=== PATIENT | female | born 1995 | race Asian ===

== ENCOUNTER 2023-07-20 07:07 | Outpatient (CLI) | payer OTHER, SELFPAY ==
--- NOTE | 2023-07-20 07:15 | CRLHL7_ITS ---
For Patients: As a result of the Cures Act, medical imaging exams and procedure reports are released immediately into your electronic medical record. You may view this report before your referring provider. If you have questions, please contact your health care provider. INDICATION: First trimester scan, establish dates. COMPARISON: None. TECHNIQUE: Real-time meehan-scale imaging of the pelvis was performed. FINDINGS: Sonographic imaging demonstrates a single living intrauterine gestation. The embryo demonstrates a regular cardiac rate measuring 167 beats per minute. The embryo`s crown-rump length measurement of 2.1 cm corresponds to a gestational age of 8 weeks 5 days with a sonographic due date of 02/24/2024. The yolk sac measures 5.8 millimeters. There are no gross abnormalities noted within the embryo at this early state of development. The gestational sac has a normal appearance. There is a 1.9 x 1.6 x 2.1 cm perigestational hemorrhage. The amount of fluid within the sac appears appropriate for gestational age. The cervix is closed. The myometrium appears normal. The ovaries are of normal size. Corpus luteal cyst right ovary. There are no suspicious fluid collections noted in the cul-de-sac. IMPRESSION: Single living intrauterine with sonographic gestational age 8 weeks 5 days and sonographic due date 02/24/2024. Upper limits of normal yolk sac measuring 5.8 millimeters. Follow-up could be considered in 2 weeks. Dictated by Augustine Rao MD @ 07/20/2023 10:19:17 AM (Electronically Signed)
== END 2023-07-20 07:08 | disposition home or self-care (01) ==
LOC: US 07:12
PROVIDERS: Visit Provider Advanced Practice Midwife
DX: Z34.91 Encounter for supervision of normal pregnancy, unspecified, first trimester (principal); Z3A.08 8 weeks gestation of pregnancy
CPT/HCPCS: 76817; 86592; 86593; 86703; 86704; 86706; 86762; 86780; 86787; 86803; 86850; 86900; 86901; 87086; 87340; 87491; 87591

== ENCOUNTER 2023-07-20 09:15 | Outpatient (CLI) | payer OTHER, SELFPAY | END 2023-07-20 09:16 | disposition home or self-care (01) | LOC: NFLDREF 07-21 06:41 | PROVIDERS: Visit Provider Advanced Practice Midwife | DX: Z34.91 Encounter for supervision of normal pregnancy, unspecified, first trimester (principal); Z3A.08 8 weeks gestation of pregnancy | CPT/HCPCS: 86592; 86593; 86703; 86704; 86706; 86762; 86780; 86787; 86803; 86850; 86900; 86901; 87086; 87340; 87491; 87591 ==

== ENCOUNTER 2023-07-25 14:54 | Emergency (ER) | payer OTHER, SELFPAY ==
[2023-07-25 15:13] VITALS: BP 117/80; PULSE 72; RESP 16; TEMP 36.6; O2SAT 100; BMI 31.5
[2023-07-25] MEDS: LACTATED RINGERS 1000 ML 1,000 ML IV (19:19)
[2023-07-25] MEDS: ONDANSETRON 2 MG/ML inj 4 MG IVP (19:20)
[2023-07-25 19:23] LABS: Appearance Urine Clear (Clear); Bilirubin Urine Negative (Negative); Blood Urine Negative (Negative); Color Urine Yellow (Yellow); Glucose Urine Negative (Negative); Ketones Urine 3+ (Negative); Leukocyte Esterase Urine Negative (Negative); Nitrite Urine Negative (Negative); Protein Urine Negative (Negative); Specific Gravity Urine >= 1.030 (1.000-1.030); Urobilinogen Urine 0.2 (0.2-1.0)
[2023-07-25 19:30] VITALS: O2SAT 99
[2023-07-25 19:41] LABS: Basophils Percent Auto 0.2 % (0.0-3.0); Eosinophils Percent Auto 0.2 % (0.0-7.0); Hematocrit 42.2 % (33.0-51.0); Hemoglobin* 14.7 gm/dL (12.0-16.0); Immature Granulocytes Pct Auto 0.1 %; Lymphocytes Percent Auto 19.2 % (20-44); Mean Corpuscular HGB Conc 35 gm/dL (32-36); Mean Corpuscular Hemoglobin 30 pg (26-34); Mean Corpuscular Volume 86 fL (80-100); Monocytes Percent Auto 3.8 % (0.0-11.0); Neutrophils Percent Auto 76.5 % (42.0-72.0); Platelet Count* 252 K/uL (140-440); RDW Coefficient of Variation % 11.6 % (11.5-15.5); Red Blood Count 4.93 m/uL (4.00-5.20)
[2023-07-25 19:42] LABS: Slide Review Reflex No
[2023-07-25 19:58] LABS: Chloride* 104 mmol/L (96-114); Potassium* 3.4 mmol/L (3.6-5.1); Sodium* 135 mmol/L (135-149)
[2023-07-25 20:01] LABS: Anion Gap 9 mEq/L (7-15); Blood Urea Nitrogen* 8 mg/dL (5-24); Carbon Dioxide* 22 mmol/L (20-32); Creatinine* 0.5 mg/dL (0.5-1.5); Estimated Glomerular Filt Rate 130 ml/min; Glucose* 84 mg/dL (60-115)
[2023-07-25 20:02] LABS: Calcium* 8.8 mg/dL (8.4-10.6)
[2023-07-25] MEDS: 0.9 % SODIUM CHLORIDE 1000 ml 1,000 ML IV (20:20)
[2023-07-25 20:28] LABS: RBC Urine 0-2 (0-2); WBC Urine 0-2 (0-5)
--- NOTE | 2023-07-25 20:32 | ED.NAVMDI ---
HPI - Nausea/Vomiting/Diarrhea General Date Seen: 07/25/23 Chief complaint: Nausea/Vomiting Stated complaint: 9 weeks , vomiting Time Seen by Provider: 07/25/23 18:52 Source: patient Mode of arrival: ambulatory Limitations: no limitations History of Present Illness HPI Narrative: Patient is a 27-year-old female presenting to the emergency department for nausea and vomiting. She has been having issues with nausea throughout her but states has been worse over the past week. She states she has been barely able to keep anything down. States she is feeling very dehydrated injury trying take her Zofran but would vomit shortly after taking it. She is having some abdominal cramping but states that this worse whenever she vomits. Has not had any vaginal discharge or bleeding. Denies fevers, chills, weakness, numbness, headache. Does states she feels mildly lightheaded and fatigued. Notes her previous she did not have this much nausea. Related Data Home Medications Medication Instructions Recorded Confirmed vitamins no.159-iron tab PO 07/20/23 07/20/23 fumarate 28 mg-folic acid 800 mcg tablet Previous Rx's Medication Instructions Recorded docusate sodium 100 mg capsule 100 mg PO BID #60 caps 07/20/23 ondansetron HCl 4 mg tablet 4 mg PO Q8H PRN nausea and 07/20/23 vomiting #90 tabs Allergies Allergy/AdvReac Type Severity Reaction Status Date / Time No Known Drug Allergies Allergy Verified 07/25/23 15:10 Review of Systems Status of ROS: Reports: 10 or more systems reviewed and unremarkable except as noted in History and below PFSH PFS Medical History Asthma, exercise induced ?J45.990 - Exercise induced bronchospasm (ICD-10) Anorexia ?R63.0 - Anorexia (ICD-10) Surgical History History of tonsillectomy and adenoidectomy ?Z90.89 - Acquired absence of other organs (ICD-10) Social History What is your current living situation?: I presently have a place to live Problems where you live: lead paint or pipes In the past 12 months, utilities in danger of being shut off: no In past 12 months, lack of transportation kept you from medical appts, meetings, work, or getting things needed for daily living: no In the past 12 mos, have been you worried that your food would run out before you had money to buy more?: never true In the past 12 mos, the food you bought just didn't last and you didn't have money to buy more?: never true How often does anyone, including family, friends and others, physically hurt you: never How often does anyone, including family, friends and others, insult or talk down to you: never How often does anyone, including family, friends and others, threaten you with harm: never How often does anyone, including family, friends and others, scream or curse at you: never Little interest or pleasure in doing things: not at all Feeling down, depressed, or hopeless: not at all Exam Narrative: Exam Narrative: Const: Well-nourished, Well-developed, in mild distress Eyes: PERRL, no conjunctival injection, and symmetrical lids HENT: Atraumatic external nose and ears. Moist mucous membranes. Neck: Symmetric, trachea midline, No thyromegaly. CVS: RRR, No murmurs or gallops. Peripheral pulses 2+ and equal in all extremities RESP: Unlabored respiratory effort. Clear to auscultation bilaterally. GI: Nontender/Nondistended, No rebound or guarding. MSK:Extremities w/o deformity, Normal Active ROM Skin: Warm, Dry. No rashes or lesions. Neuro: Normal Muscle tone, No focal neurological deficits. Psych: Awake, Alert, & Oriented x3. Appropriate mood and affect. Const: Vital Signs, click to edit/add: Vital Signs - 24 hr 07/25/23 15:13 Temperature 97.9 F Pulse Rate [Pulse Oximeter] 72 Respiratory Rate 16 Blood Pressure [Ri ght Upper Arm] 117/80 Pulse Oximetry 100 Oxygen Delivery Me thod Room Air Course Vital Signs Vital signs: Initial Vital Signs Temperature 97.9 F 07/25/23 15:13 Temperature Source Temporal Artery Scan 07/25/23 15:13 Pulse Rate 72 07/25/23 15:13 Pulse Rhythm Regular 07/25/23 15:13 Pulse Strength 3+ Normal 07/25/23 15:13 Respiratory Rate 16 07/25/23 15:13 Blood Pressure 117/80 07/25/23 15:13 Blood Pressure Mean 92 07/25/23 15:13 Blood Pressure Position Sitting 07/25/23 15:13 Pulse Oximetry 100 07/25/23 15:13 Oxygen Delivery Method Room Air 07/25/23 15:13 Vital Signs Temperature 97.9 F 07/25/23 15:13 Pulse Rate 72 07/25/23 15:13 Respiratory Rate 16 07/25/23 15:13 Blood Pressure 117/80 07/25/23 15:13 Pulse Oximetry 100 07/25/23 15:13 Oxygen Delivery Method Room Air 07/25/23 15:13 Temperature 97.9 F 07/25/23 15:13 Pulse Rate 72 07/25/23 15:13 Respiratory Rate 16 07/25/23 15:13 Blood Pressure 117/80 07/25/23 15:13 Pulse Oximetry 100 07/25/23 15:13 Oxygen Delivery Method Room Air 07/25/23 15:13 Medications Administered Medications: Discontinued Medications Generic Name Dose Route Start Last Admin Trade Name Freq PRN Reason Stop Dose Admin Lactated Ringer's 1,000 mls @ 1,000 mls/hr 07/25/23 18:57 07/25/23 20:16 Lactated Ringers 1000 Ml IV 07/25/23 19:56 Infused .Q1H ONE Infusion Ondansetron HCl 4 mg 07/25/23 18:57 07/25/23 19:20 Ondansetron 2 Mg/Ml Inj IVP 07/25/23 18:58 4 mg ONCE ONE Administration MDM - Nausea/Vomiting/Diarrhea MDM Narrative Medical decision making narrative: Patient is a 27-year-old female presenting to emergency department for nausea and vomiting. She is currently about 9 weeks . Vital signs are stable. We will do CMP, CBC, urinalysis. Zofran given IV along with a L of lactated Ringer's. Lab work all returned showing no signs of HELLP syndrome. A noted L of fluids was given 2 to urinalysis showing large amount dehydration. The elevated white count is likely secondary to the vomiting and her and no clear signs of infection. No signs of UTI. She is otherwise doing well and be discharged home. She has Zofran at home. Lab Data Labs: Lab Results 07/25/23 07/25/23 07/25/23 Range/Units 19:07 19:15 20:18 WBC 12.60 H (4.50-11.00) K/uL RBC 4.93 (4.00-5.20) m/uL Hgb 14.7 (12.0-16.0) gm/dL Hct 42.2 (33.0-51.0) % MCV 86 (80-100) fL MCH 30 (26-34) pg MCHC 35 (32-36) gm/dL RDW Coeff of Rafael 11.6 (11.5-15.5) % Plt Count 252 (140-440) K/uL Neut % (Auto) 76.5 H (42.0-72.0) % Lymph % (Auto) 19.2 L (20-44) % Coffey % (Auto) 3.8 (0.0-11.0) % Eos % (Auto) 0.2 (0.0-7.0) % Baso % (Auto) 0.2 (0.0-3.0) % Neut # (Auto) 9.60 H (1.7-7.0) K/uL Lymph # (Auto) 2.40 (0.90-2.90) K/uL Coffey # (Auto) 0.50 (0.00-0.90) K/UL Eos # (Auto) 0.00 (0.00-0.50) K/uL Baso # (Auto) 0.00 (0.00-0.30) K/uL Abs Immat Gran (auto) 0.00 (0.00-0.30) K/uL Imm/Tot Granulo (auto) 0.1 % Sodium 135 (135-149) mmol/L Potassium 3.4 L (3.6-5.1) mmol/L Chloride 104 (96-114) mmol/L Carbon Dioxide 22 (20-32) mmol/L Anion Gap 9 (7-15) mEq/L BUN 8 (5-24) mg/dL Creatinine 0.5 (0.5-1.5) mg/dL Estimated Creat Clear 131.30 Estimated GFR 130 ml/min Glucose 84 (60-115) mg/dL Calcium 8.8 (8.4-10.6) mg/dL Total Bilirubin (0.1-1.5) mg/dL Direct Bilirubin (0.0-0.5) mg/dL AST (12-35) U/L ALT (4-35) U/L Alkaline Phosphatase (40-150) U/L Total Protein (6.0-8.3) g/dL Albumin (3.3-5.0) g/dL Urine Color Yellow (Yellow) Urine Appearance Clear (Clear) Urine pH 6.0 (5.0-8.5) Ur Specific [place] >= 1.030 (1.000-1.030) Urine Protein Negative (Negative) Urine Glucose (UA) Negative (Negative) Urine Ketones 3+ A (Negative) Urine Blood Negative (Negative) Urine Nitrite Negative (Negative) Urine Bilirubin Negative (Negative) Urine Urobilinogen 0.2 (0.2-1.0) Ur Leukocyte Esterase Negative (Negative) Urine RBC 0-2 (0-2) Urine WBC 0-2 (0-5) Ur Squamous Epith Cells None (None-Few) Urine Bacteria None (None) Lab Acknowledgement Test Added 07/25/23 Range/Units 20:19 WBC (4.50-11.00) K/uL RBC (4.00-5.20) m/uL Hgb (12.0-16.0) gm/dL Hct (33.0-51.0) % MCV (80-100) fL MCH (26-34) pg MCHC (32-36) gm/dL RDW Coeff of Rafael (11.5-15.5) % Plt Count (140-440) K/uL Neut % (Auto) (42.0-72.0) % Lymph % (Auto) (20-44) % Coffey % (Auto) (0.0-11.0) % Eos % (Auto) (0.0-7.0) % Baso % (Auto) (0.0-3.0) % Neut # (Auto) (1.7-7.0) K/uL Lymph # (Auto) (0.90-2.90) K/uL Coffey # (Auto) (0.00-0.90) K/UL Eos # (Auto) (0.00-0.50) K/uL Baso # (Auto) (0.00-0.30) K/uL Abs Immat Gran (auto) (0.00-0.30) K/uL Imm/Tot Granulo (auto) % Sodium (135-149) mmol/L Potassium (3.6-5.1) mmol/L Chloride (96-114) mmol/L Carbon Dioxide (20-32) mmol/L Anion Gap (7-15) mEq/L BUN (5-24) mg/dL Creatinine (0.5-1.5) mg/dL Estimated Creat Clear Estimated GFR ml/min Glucose (60-115) mg/dL Calcium (8.4-10.6) mg/dL Total Bilirubin 0.4 (0.1-1.5) mg/dL Direct Bilirubin 0.0 (0.0-0.5) mg/dL AST 21 (12-35) U/L ALT 20 (4-35) U/L Alkaline Phosphatase 56 (40-150) U/L Total Protein 7.5 (6.0-8.3) g/dL Albumin 4.4 (3.3-5.0) g/dL Urine Color (Yellow) Urine Appearance (Clear) Urine pH (5.0-8.5) Ur Specific [place] (1.000-1.030) Urine Protein (Negative) Urine Glucose (UA) (Negative) Urine Ketones (Negative) Urine Blood (Negative) Urine Nitrite (Negative) Urine Bilirubin (Negative) Urine Urobilinogen (0.2-1.0) Ur Leukocyte Esterase (Negative) Urine RBC (0-2) Urine WBC (0-5) Ur Squamous Epith Cells (None-Few) Urine Bacteria (None) Lab Acknowledgement Discharge Plan Discharge Clinical Impression: Nausea and vomiting during Patient Disposition: Home, Self-Care Condition: Improved Instructions: Hyperemesis Gravidarum (ED) Additional Instructions: Take the Zofran as soon as you start feeling nauseated to stay ahead of the nausea. If symptoms persist follow-up with your OB Gyne. If symptoms worsen or you develop new symptoms return to the emergency department for re-evaluation Prescriptions: No Action PNV no.388-npht-poqyi acid 28 mg iron- 800 mcg tablet PO ondansetron HCl 4 mg tablet 4 mg PO Q8H PRN (Reason: nausea and vomiting) Qty: 90 2RF docusate sodium 100 mg capsule 100 mg PO BID Qty: 60 3RF Follow Up/Referrals: Provider,Not a Local [Primary Care Provider] - Stand Alone Forms: [employer] Info Instructions
[2023-07-25 20:38] LABS: Albumin* 4.4 g/dL (3.3-5.0)
[2023-07-25 20:41] LABS: Alkaline Phosphatase* 56 U/L (40-150); Aspartate Amino Transferase* 21 U/L (12-35); Bilirubin Total* 0.4 mg/dL (0.1-1.5); Total Protein* 7.5 g/dL (6.0-8.3)
[2023-07-25 20:42] LABS: Alanine Aminotransferase* 20 U/L (4-35)
[2023-07-25 21:15] VITALS: BP 112/78; PULSE 75; RESP 16; TEMP 36.8; O2SAT 100
[2023-07-25 21:40] VITALS: BP 112/78; PULSE 75; RESP 16; TEMP 36.8
== END 2023-07-25 21:40 | disposition home or self-care (01) ==
PROVIDERS: Emergency Provider Student in an Organized Health Care Education/Training Program
DX: O21.9 Vomiting of pregnancy, unspecified (principal); Z3A.09 9 weeks gestation of pregnancy
CPT/HCPCS: 36415; 80048; 80076; 81001; 85025; 94761; 96374; 99283; 99284; J2405; J7030; J7120

== ENCOUNTER 2023-08-10 14:02 | Outpatient (CLI) | payer OTHER, SELFPAY ==
--- NOTE | 2023-08-10 14:00 | CRLHL7_ITS ---
For Patients: As a result of the Century Cures Act, medical imaging exams and procedure reports are released immediately into your electronic medical record. You may view this report before your referring provider. If you have questions, please contact your health care provider. INDICATION: f/u previously measured at upper limits of normal yolk sac (5.8mm) COMPARISON: 07/20/2023 TECHNIQUE: Real-time meehan-scale imaging of the pelvis was performed. FINDINGS: Sonographic imaging demonstrates a single living intrauterine gestation. The embryo demonstrates a regular cardiac rate measuring 155 beats per minute. The embryo`s crown-rump length measurement of 5.5 cm corresponds to a gestational age of 12 weeks 1 day with a sonographic due date of 02/21/2024. Yolk sac measures 9 millimeters. IMPRESSION: Single living intrauterine with sonographic gestational age 12 weeks 1 day and sonographic due date 02/21/2024. Enlarged yolk sac measuring 9 millimeters. Dictated by Augustine Rao MD @ 08/10/2023 3:46:06 PM (Electronically Signed)
== END 2023-08-10 14:03 | disposition home or self-care (01) ==
PROVIDERS: Visit Provider Advanced Practice Midwife
DX: O41.8X10 Other specified disorders of amniotic fluid and membranes, first trimester, not applicable or unspecified (principal); Z3A.12 12 weeks gestation of pregnancy
CPT/HCPCS: 76801

== ENCOUNTER 2023-10-05 13:57 | Outpatient (CLI) | payer OTHER, SELFPAY ==
--- NOTE | 2023-10-05 14:00 | US_ITS ---
Patient: LUCIE AN Facility:?[facility] Patient ID:?[id number] Site Patient ID:?[id number]. Site :?1995 Study:?US-OB Pelvis OB > 14wks-10/05/2023 3:44:15 PM Ordering Physician:Argelia Broussard Final Report: INDICATION: Evaluate anatomy. COMPARISON: 08/10/2023 TECHNIQUE: Real time meehan scale imaging of the fetus was performed as well as color Doppler analysis of the umbilical vessels. FINDINGS: Sonographic imaging demonstrates a single living intrauterine gestation. Fetus demonstrates a regular cardiac rate of 130 beats per minute. Fetus has a vertex position. The placenta lies anteriorly without evidence of placenta previa. Placental edge is 6 cm from the internal cervical os. Amniotic fluid volume appears normal. Single deepest vertical pocket: 4.7 cm. The cervix is closed and measures 5.7 cm in length. The composite ultrasound gestational age is calculated at 20 weeks 2 days with an estimated sonographic due date of 02/20/2024. The estimated weight is 342 grams which lies at the 77th %. The following biometric measurements were obtained: Biparietal diameter: 4.8 cm/20 weeks 3 days 80th% Head circumference: 17.5 cm/20 weeks 0 days 56th% Abdominal circumference: 15.9 cm/21 weeks 0 days 83rd% Femur length: 3.1 cm/19 weeks 3 days 32nd% The HC/AC ratio measures: 1.10 range (1.07-1.25) On anatomic survey, there is a normal appearance of the cerebral ventricles, cavum septi pellucidi, cisterna magna and cerebellum. The nose, lips, and facial profile appear normal. The cervical, thoracic and lumbar spine are not well visualized due to position. There is a normal four-chamber heart view and the left and right ventricular outflow tracts appear normal. The diaphragm and stomach appear normal. The kidneys and bladder also appear normal. There is a normal three-vessel cord and cord insertion site. The four extremities appear normal. IMPRESSION: Concordance of clinical and sonographic dating. Incomplete visualization of the spine due to position. Remainder of the anatomic survey normal. Short-term follow-up recommended. Dictated by Augustine Rao MD @ 10/06/2023 10:39:05 AM Signed by:?Augustine Rao MD @10/06/2023 10:39:05 AM (Electronic Signature)
== END 2023-10-05 13:58 | disposition home or self-care (01) ==
PROVIDERS: Visit Provider Advanced Practice Midwife
DX: Z34.92 Encounter for supervision of normal pregnancy, unspecified, second trimester (principal); Z3A.20 20 weeks gestation of pregnancy
CPT/HCPCS: 76805

== ENCOUNTER 2023-11-03 13:55 | Outpatient (CLI) | payer OTHER, SELFPAY ==
--- NOTE | 2023-11-03 14:00 | US_ITS ---
Patient: LUCIE AN Facility:?[facility] Patient ID:?[id number] Site Patient ID:?[id number]. Site :?1995 Study:?US-OB Pelvis FOLLOW UP-11/03/2023 2:36:23 PM Ordering Physician:JEANNETTE ESCOBAR Final Report: HISTORY: Complete anatomic survey, spine not fully examined COMPARISON: Previous OB ultrasound from 10/05/2023. TECHNIQUE: Ultrasound examination of the is performed with transabdominal technique. FINDINGS: A single intrauterine gestation is seen in variable presentation with regular cardiac activity at 137 beats per minute. The placenta is anterior and is free of the cervical os. The placental grade is 1 and the amniotic fluid volume is normal. Single deepest vertical pocket: Normal at 6.7 cm. The cervix is nondilated and normal in length at 4.9 centimeters. The spine is examined in its entirety and is normal in appearance. The nose and lips are normal in appearance. IMPRESSION: 1. Single intrauterine gestation in variable presentation with regular cardiac activity. 2. spine examined and is normal in appearance. anatomic survey is now complete. Dictated by Edwin Lawton MD @ 11/04/2023 12:15:23 PM Signed by:?Edwin Lawton MD @11/04/2023 12:15:23 PM (Electronic Signature)
== END 2023-11-03 13:56 | disposition home or self-care (01) ==
LOC: US 13:55
PROVIDERS: Visit Provider Advanced Practice Midwife
DX: O35.FXX0 Maternal care for other (suspected) fetal abnormality and damage, fetal musculoskeletal anomalies of trunk, not applicable or unspecified (principal)
CPT/HCPCS: 76816

== ENCOUNTER 2023-12-01 14:39 | Outpatient (CLI) | payer OTHER, SELFPAY | END 2023-12-01 14:40 | disposition home or self-care (01) | LOC: NFLDREF 14:41 | PROVIDERS: Visit Provider Advanced Practice Midwife | DX: Z34.92 Encounter for supervision of normal pregnancy, unspecified, second trimester (principal); Z3A.27 27 weeks gestation of pregnancy | CPT/HCPCS: 86592 ==

== ENCOUNTER 2023-12-06 08:26 | Outpatient (CLI) | payer OTHER, SELFPAY | END 2023-12-06 08:27 | disposition home or self-care (01) | LOC: NFLDREF 12-07 07:22 | PROVIDERS: Visit Provider Advanced Practice Midwife | DX: R73.09 Other abnormal glucose (principal) | CPT/HCPCS: 82951; 82952 ==

== ENCOUNTER 2024-01-01 12:55 | Outpatient (CLI) | payer OTHER, SELFPAY ==
--- OUTSIDE RECORDS SUMMARY | 2024-01-01 12:59 | XMS_ITS | Clinical Summary ---
Author Organization [facility] Address [address] [place] [address] Care Team Providers Care Polishing Machine Tender Name Role Phone Elsewhere, Pcp Primary Care Provider Unavailabl e Source Comments Patient records contain information from all sites at [facility]. For routine questions regarding patient records, call [phone] during business hours, M-F 8:00 AM - 5:00 PM Central Time. Record requests for emergency care only can be directed to [phone] at any time.[facility] Allergies Active Allergy Reactions Criticality Noted Date Comments Milk GI intolerance 05/11/2010 Other reaction(s): GI intolerance Medications Medication Sig Dispensed Refills Start Date End Date Status sodium,potassium,ma g sulfates (SUPREP BOWEL PREP) 17.5-3.13-1.6 gram solution Mix and take as directed according to booklet Preparation Instructions for Your Colonoscopy. 1 kit 05/24/2019 Active Additional Information Patient not taking.Reported on 08/14/2023 ondansetron (ZOFRAN) 4 mg tablet Take 4 mg by mouth every 8 (eight) hours as needed for nausea or vomiting. Active [id number] 27 mg iron- 1 mg tablet Take 1 tablet by mouth daily. Active docusate sodium (COLACE) 100 mg capsule Take 100 mg by mouth daily. 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 Immunizations Name Administration Dates Next Due 4vHPV (discontinued) 09/03/2008,04/08/2008,02/05 HepA Adult 06/15/2012 HepA Pediatric/Adolescent 11/15/2011 Influenza, Unspecified 06/15/2012,06/11/2007 Tdap 02/04/2009 Social History Tobacco Use Types Packs/Day Years Used Date Smoking Tobacco: Never Smokeless Tobacco: Never Tobacco Cessation:Counseling Given: Not Answered Nutrition Answer Date Recorded Nutrition: EVOO Fat Source Unknown 09/23 Nutrition: Servings of Fruits/Vegetables per Day Not on file 09/23/2020 Dental Answer Date Recorded Dental: Regular Dentist Unknown 09/24/19 21 Estimated Date of Delivery Comme nts Yes 02/24/2024 Based on last me nstrual period of 05/20/2023 Sex and Gender Information Value Date Recorded Sex Assigned at Not on file Gender Identity Not on file Sexual Orientation Not on file Last Filed Vital Signs Vital Sign Reading Time Taken Comments Blood Pressure 127/87 08/14/2023 3:11 PM CONVERTER OPERATOR Pulse 88 08/14/2023 3:11 PM CONVERTER OPERATOR Temperature 36.3 ??C (97.3 ??F) 08/14/2023 3:11 PM CS T Respiratory Rate 16 08/14/2023 3:11 PM CONVERTER OPERATOR Oxygen Saturation - - Inhaled Oxygen Concentration - - Weight 78.3 kg (172 lb 9.9 oz) 08/14/2023 3:11 P M CONVERTER OPERATOR Height 157 cm (5' 1.81) 03/14/2019 3:15 PM CDT Body Mass Index 31.77 03/14/2019 3:15 PM CDT Plan of Treatment Health Maintenance Due Date Last Done Comments HIV Screening 1995 Hepatitis C Screening 1995 Pneumococcal vaccine (0-64 y ears) (1 of 2 - PCV) 11/18/1999 Hepatitis B Vaccines (1 of 3 - 19+ 3-dose series) 2012 Asthma Action Plan 01/04/2017 01/09/2015 Asthma Control Test Questionnaire 01/04/2017 015 Asthma Management/Exacerbati on Questionnaire (AMQ/AEQ) 01/04/2017 Cervical Cancer Screening 01/09/2018 01/09/2015 Depression Screening (Annual PHQ-2) 07/24/2023 DTaP,Tdap,and Td Vaccines (4 - Td or Tdap) 05/07/2028 05/07/2018, 02/04/2009, 03/19/2008 Hepatitis A Vaccines Completed 06/15/2012, 11/15/19 12 HPV Vaccines Completed 09/22/2017, 05/24, 04/19/2017, Additional history exists COVID-19 Vaccine Completed 06/23/2023, 09/2021, 07/14/2021, Additional history exists Influenza Vaccine Completed 06/23/2023, , 09/29/2021, Additional history exists RSV vaccine - (32-3 6 weeks) or 60+ years (No Doses Required) Completed Goals Goal Patient Goal Type Associated Problems Recent Progress Patient-Stated? Author [facility] Care Plan for Healthy Care Plan [facility] Care Plan for Healthy No Support, [facility] - Nicotine Dependency Chronic Care Plan [facility] Care Plan for Healthy No Support, [facility] Procedures Procedure Name Priority Date/Time Associated Diagnosis Comments PATHOLOGY FEEDER OPERATOR CYTOLOGY Routine 01/09/2015 12:00 AM CDT from Last 3 Months or Most Recently Relevant to Health Maintenance Results * Pathology FEEDER OPERATOR Cytology (01/09/2015 12:00 AM CDT) 01/09/2015 Narrative [facility] LAB - 02/09/2015 12:52 PM CDT [facility] [place] [address] [place], [place] ??[address] Patient Name: DUNIA LOUIS DELFIN Collected: 01/09/2015 Address: [facility]/State/Zip: [address] [place] [address] ??[phone] Received: Reported: 01/12/2015 01/15/2015 Soc. Sec. #: ?/Age/Sex 1995 (Age: 19) ??F Physician(s): Sneha MONACO CNP Copy To: ? [facility] ??[id number] [address] [facility] [facility], ??[place] ??[address] CYTOPATHOLOGY FEEDER OPERATOR REPORT FINAL CYTOLOGIC DIAGNOSIS Pap Smear - ThinPrep: NEGATIVE FOR INTRAEPITHELIAL LESION OR MALIGNANCY ENDOCERVICAL CELLS/COMPONENT PRESENT. SATISFACTORY SPECIMEN FOR EVALUATION. Electronically Signed Out By ez/01/15/2015 ANGELICA JOHNS(ASCP) The Pap test is a screening procedure and, as such, is subject to both false positive and false negative results as evidenced by published data. ??It is not a diagnostic test and results should be interpreted in the context of the patient's history and other clinical findings. ??Obtaining periodic Pap tests may help to minimize the consequences of any false negatives that may occur. Procedures/Addenda: ADDENDUM ? Date Ordered: ? 01/16/2015 ? Status: ??Signed Out Date Complete: ? 01/19/2015 ? By: ??TL Date Reported: ? 02/09/2015 Addendum Diagnosis Chlamydia trachomatis Amplified RNA (FROM [facility] [employer]; [address] , [place], [place]) SOURCE: ??ENDOCERVIX Chlamydia trachomatis amplified RNA: ?Negative ? Negative RECEIVED: 01/17/2015 07:45 REPORTED: 01/17/2015 22:31 REVIEWED BY [facility] PATHOLOGIST: EAE:charles January 19, 2015 KENY DIAZ M.D. SPECIMEN(S) RECEIVED: Pap Smear - ThinPrep CLINICAL HISTORY: Date of Last PAP: FIRST Date of Last Menstrual Period: 12/18/2014 Other Clinical Conditions: HPV TYPING REQUESTED: IF ASCUS CHLAMYDIA TRACHOMATIS TEST ORDERED Eli Monaco C.N.P. LAB PAP COPATH ORD RIGO LC LAB from Last 3 Months or Most Recently Relevant to Health Maintenance Additional Health Concerns Active Problems Noted Date Diagnosed Date [facility] Care Plan for Healthy 05/25 Care Teams Polishing Machine Tender Relationship Specialty Start Date End Date Elsewhere, Pcp PCP - General Internal Medicine 01/04/23
--- NOTE | 2024-01-01 13:00 | CRLHL7_ITS ---
For Patients: As a result of the Century Cures Act, medical imaging exams and procedure reports are released immediately into your electronic medical record. You may view this report before your referring provider. If you have questions, please contact your health care provider. OB ULTRASOUND 01/01/2024 CLINICAL HISTORY: Gestational diabetes mellitus. COMPARISON: 11/03/23, 10/05/23, 08/10/23. FINDINGS: ROBERT by LMP: 02/24/2024. GA: 32 weeks 2 days. Single Cervix: Not visualized. Position: Vertex. Amniotic Fluid: 7.2 cm. Placenta: Technique: Transabdominal. Placenta Position: Anterior. Dopplers: Heart Rate: 126 bpm. BIOMETRY: BPD: 8.4 cm, 33 weeks 6 DAYS. 84% HC: 29.5 cm, 32 weeks 4 days. 21% AC: 28.9 cm, 32 weeks 6 days. 67% FL: 6.1 cm, 31 weeks 4 days. 19% EFW: 1995 g, 4 lb 6 oz. Age by this US: 32 weeks 5 days. ROBERT by this US: 02/21/24. Percentile by ROBERT: 47% IMPRESSION: Measurements are consistent with dates. Good interval growth since the prior exam. David Enriquez M.D. Body/Diagnostic Radiologist [email or web address] Transcribed: 1:11 pm DW/Dictated by: David Enriquez MD @ 01/02/2024 10:11:00 AM (Electronically Signed)
--- OUTSIDE RECORDS SUMMARY | 2024-01-01 13:00 | XMS_ITS | Referral Summary ---
Author Organization [facility] Address [address] [place] [address] Care Team Providers Care Commodities Clerk Name Role Phone Elsewhere, Pcp Primary Care Provider Unavailabl e Source Comments Patient records contain information from all sites at [facility]. For routine questions regarding patient records, call [phone] during business hours, M-F 8:00 AM - 5:00 PM Central Time. Record requests for emergency care only can be directed to [phone] at any time.[facility] Allergies Active Allergy Reactions Criticality Noted [...] as needed for nausea or vomiting. Active zloasda-Fu-rcpk-FA 27 mg iron- 1 mg tablet Take [...] Comments Blood Pressure 127/87 08/14/2023 3:11 PM MECHANICAL DESIGN ENGINEER Pulse 88 08/14/2023 3:11 PM MECHANICAL DESIGN ENGINEER Temperature 36.3 ??C (97.3 ??F) 08/14/2023 3:11 PM CS T Respiratory Rate 16 08/14/2023 3:11 PM MECHANICAL DESIGN ENGINEER Oxygen Saturation - - Inhaled Oxygen Concentration - - Weight 78.3 kg (172 lb 9.9 oz) 08/14/2023 3:11 P M MECHANICAL DESIGN ENGINEER Height 157 cm (5' 1.81) 03/14/2019 3:15 PM CDT Body Mass Index 31.77 03/14/2019 3:15 PM CDT Plan of Treatment Not on file Goals Goal Patient Goal Type Associated Problems Recent Progress Patient-Stated? Author [facility] Care Plan for Healthy Care Plan [facility] Care Plan for Healthy No Support, Cogito [facility] - Nicotine Dependency Chronic Care Plan [facility] Care Plan for Healthy No Support, [facility] Procedures Procedure Name Priority Date/Time Associated Diagnosis Comments PATHOLOGY DUCK OPERATOR CYTOLOGY Routine 01/09/2015 12:00 AM CDT from Last 3 Months or Most Recently Relevant to Health Maintenance Results * Pathology DUCK OPERATOR Cytology (01/09/2015 12:00 AM CDT) 01/09/2015 Narrative LCM LAB - 02/09/2015 12:52 PM CDT [facility] [place] [address] [place], [place] ??[phone] Patient Name: DUNIA LOUIS Collected: 01/09/2015 Address: City/State/Zip: [address] [place] [address] ??[id number] Received: Reported: 01/12/2015 01/15/2015 Soc. Sec. #: ?/Age/Sex 1995 (Age: 19) ??F Physician(s): Sneha MONACO CNP Copy To: ? [facility] ??[id number] [address] [facility], ??[place] ??[id number] CYTOPATHOLOGY DUCK OPERATOR REPORT FINAL CYTOLOGIC DIAGNOSIS Pap Smear [...] Date Complete: ? 01/19/2015 ? By: ??TL HANNEM Date Reported: ? 02/09/2015 Addendum Diagnosis Chlamydia trachomatis Amplified RNA (FROM [facility]; [address], [place], [place]) SOURCE: ??ENDOCERVIX Chlamydia trachomatis amplified RNA: ?Negative ? Negative RECEIVED: 01/17/2015 07:45 REPORTED: 01/17/2015 22:31 REVIEWED BY [facility] PATHOLOGIST: EAE:tl January 19, 2015 KENY DIAZ M.D. SPECIMEN(S) RECEIVED: Pap Smear - ThinPrep CLINICAL HISTORY: Date of Last PAP: FIRST Date of Last Menstrual Period: 12/18/2014 Other Clinical Conditions: HPV TYPING REQUESTED: IF ASCUS CHLAMYDIA TRACHOMATIS TEST ORDERED Eli Monaco C.N.P. LAB PAP COPATH ORD ERABLES [facility] Organization Address City/State/ZIP Co de Phone Number [facility] from Last 3 Months or Most Recently Relevant to Health Maintenance Additional Health Concerns Active Problems Noted Date Diagnosed Date [facility] Care Plan for Healthy 05/25 Care Teams Commodities Clerk Relationship Specialty Start Date End Date Elsewhere, Pcp PCP - General Internal Medicine 01/04/23
--- OUTSIDE RECORDS SUMMARY | 2024-01-01 13:00 | XMS_ITS ---
Author Organization [facility] Address [address] [place] [address] Care Team Providers Care Building Attendant Name Role Phone Unavailable Unavailable Unavailable Surgery Details Not on file Complications Check Surgery Details section. Procedure Estimated Blood Loss Check Surgery Details section. Procedure Findings Check Surgery Details section. Procedure Specimens Taken Check Surgery Details section.
== END 2024-01-01 12:56 | disposition home or self-care (01) ==
PROVIDERS: Visit Provider Advanced Practice Midwife
DX: O24.419 Gestational diabetes mellitus in pregnancy, unspecified control (principal); Z3A.32 32 weeks gestation of pregnancy
CPT/HCPCS: 76816

== ENCOUNTER 2024-01-18 08:29 | Outpatient (CLI) | payer OTHER, SELFPAY ==
--- OUTSIDE RECORDS SUMMARY | 2024-01-18 08:31 | XMS_ITS | Referral Summary ---
Author Organization [facility] Address [address] [place] [address] Care Team Providers Care Rail Project Engineer Name Role Phone Elsewhere, Pcp Primary Care Provider Unavailabl e Source Comments Patient records contain information from all sites at [facility]. For routine questions regarding patient records, call [phone] during business hours, M-F 8:00 AM - 5:00 PM Central Time. Record requests for emergency care only can be directed to [phone] at any time.[facility] Allergies Active Allergy Reactions Criticality Noted Date [...] as needed for nausea or vomiting. Active qbdvwmz-Hs-oqwl-FA 27 mg iron- 1 mg tablet Take [...] Comments Blood Pressure 127/87 08/14/2023 3:11 PM IMPORT/EXPORT AGENT Pulse 88 08/14/2023 3:11 PM IMPORT/EXPORT AGENT Temperature 36.3 ??C (97.3 ??F) 08/14/2023 3:11 PM CS T Respiratory Rate 16 08/14/2023 3:11 PM IMPORT/EXPORT AGENT Oxygen Saturation - - Inhaled Oxygen Concentration - - Weight 78.3 kg (172 lb 9.9 oz) 08/14/2023 3:11 P M IMPORT/EXPORT AGENT Height 157 cm (5' 1.81) 03/14/2019 3:15 PM CDT Body Mass Index 31.77 03/14/2019 3:15 PM CDT Plan of Treatment Not on file Goals Goal Patient Goal Type Associated Problems Recent Progress Patient-Stated? Author [facility] Care Plan for Healthy Care Plan [facility] Care Plan for Healthy No Support, Cogito [facility] - Nicotine Dependency Chronic Care Plan [facility] Care Plan for Healthy No Support, [facility] Procedures Procedure Name Priority Date/Time Associated Diagnosis Comments PATHOLOGY AERONAUTICAL ENGINEERING OFFICER CYTOLOGY Routine 01/09/2015 12:00 AM CDT from Last 3 Months or Most Recently Relevant to Health Maintenance Results * Pathology AERONAUTICAL ENGINEERING OFFICER Cytology (01/09/2015 12:00 AM CDT) 01/09/2015 Narrative LCM LAB - 02/09/2015 12:52 PM CDT [facility] [place] [address] [place], [place] ??[phone] Patient Name: DUNIA LOUIS Collected: 01/09/2015 Address: City/State/Zip: [address] [place] [address] ??[phone] Received: Reported: 01/12/2015 01/15/2015 Soc. Sec. #: ?/Age/Sex 1995 (Age: 19) ??F Physician(s): Sneha MONACO CNP Copy To: ? [facility] ??[id number] [address] [facility], ??[place] ??[address] CYTOPATHOLOGY AERONAUTICAL ENGINEERING OFFICER REPORT FINAL CYTOLOGIC DIAGNOSIS Pap Smear - [...] Addendum Diagnosis Chlamydia trachomatis Amplified RNA (FROM [facility]; [address], [place], [place]) SOURCE: ??ENDOCERVIX Chlamydia trachomatis amplified RNA: ?Negative ? Negative RECEIVED: 01/17/2015 07:45 REPORTED: 01/17/2015 22:31 REVIEWED BY [facility] PATHOLOGIST: EAE:tl January 19, 2015 KENY DIAZ M.D. SPECIMEN(S) RECEIVED: Pap Smear - ThinPrep CLINICAL HISTORY: Date of Last PAP: FIRST Date of Last Menstrual Period: 12/18/2014 Other Clinical Conditions: HPV TYPING REQUESTED: IF ASCUS CHLAMYDIA TRACHOMATIS TEST ORDERED Eli Monaco C.N.P. LAB PAP COPATH ORD ERABLES [facility] Organization Address City/State/ZIP Co de Phone Number [facility] LAB from Last 3 Months or Most Recently Relevant to Health Maintenance Additional Health Concerns Active Problems Noted Date Diagnosed Date [facility] Care Plan for Healthy 05/25 Care Teams Rail Project Engineer Relationship Specialty Start Date End Date Elsewhere, Pcp PCP - General Internal Medicine 01/04/23
--- OUTSIDE RECORDS SUMMARY | 2024-01-18 08:31 | XMS_ITS | Clinical Summary ---
Author Organization [facility] Address [address] [place] [address] Care Team Providers Care Cooker Pie Filling Name Role Phone Elsewhere, Pcp Primary Care Provider Unavailabl e Source Comments Patient records contain information from all sites at [facility]. For routine questions regarding patient records, call [phone] during business hours, M-F 8:00 AM - 5:00 PM Central Time. Record requests for emergency care only can be directed to [phone] at any time.[facility] Allergies Active Allergy Reactions Criticality Noted Date [...] as needed for nausea or vomiting. Active qusivxc-Ww-pxzo-FA 27 mg iron- 1 mg tablet Take [...] Comments Blood Pressure 127/87 08/14/2023 3:11 PM HIGH PRESSURE CLEANER Pulse 88 08/14/2023 3:11 PM HIGH PRESSURE CLEANER Temperature 36.3 ??C (97.3 ??F) 08/14/2023 3:11 PM CS T Respiratory Rate 16 08/14/2023 3:11 PM HIGH PRESSURE CLEANER Oxygen Saturation - - Inhaled Oxygen Concentration - - Weight 78.3 kg (172 lb 9.9 oz) 08/14/2023 3:11 P M HIGH PRESSURE CLEANER Height 157 cm (5' 1.81) 03/14/2019 3:15 [...] Problems Recent Progress Patient-Stated? Author [facility] Care Plan for Healthy Care Plan [facility] Care Plan for Healthy No Support, Cogito [facility] - Nicotine Dependency Chronic Care Plan [facility] Care Plan for Healthy No Support, [facility] Procedures Procedure Name Priority Date/Time Associated Diagnosis Comments PATHOLOGY BOAT LABORER CYTOLOGY Routine 01/09/2015 12:00 AM CDT from Last 3 Months or Most Recently Relevant to Health Maintenance Results * Pathology BOAT LABORER Cytology (01/09/2015 12:00 AM CDT) 01/09/2015 Narrative LCM LAB - 02/09/2015 12:52 PM CDT [facility] in [place] [address] [facility] [address] [place], [place] ??[phone] Patient Name: DUNIA LOUIS DELFIN Collected: 01/09/2015 Address: [facility]/State/Zip: [address] [place] [address] ??[phone] Received: Reported: 01/12/2015 01/15/2015 Soc. Sec. #: ?/Age/Sex 1995 (Age: 19) ??F Physician(s): Sneha MONACO CNP Copy To: ? [facility] ??[id number] [address] [facility], ??[place] ??[address] CYTOPATHOLOGY BOAT LABORER REPORT FINAL CYTOLOGIC DIAGNOSIS Pap Smear - [...] Addendum Diagnosis Chlamydia trachomatis Amplified RNA (FROM [facility] [employer]; [address] , [place], [place]) SOURCE: ??ENDOCERVIX Chlamydia trachomatis amplified RNA: ?Negative ? Negative RECEIVED: 01/17/2015 07:45 REPORTED: 01/17/2015 22:31 REVIEWED BY [facility] PATHOLOGIST: EAE:charles January 19, 2015 KENY [...] Problems Noted Date Diagnosed Date [facility] Care Plan for Healthy 05/25 Care Teams Cooker Pie Filling Relationship Specialty Start Date End Date Elsewhere, Pcp PCP - General Internal Medicine 01/04/23
--- OUTSIDE RECORDS SUMMARY | 2024-01-18 08:31 | XMS_ITS ---
Author Organization [facility] Address [address] [place] [address] Care Team Providers Care Banquet Lead Name Role Phone Unavailable Unavailable Unavailable Surgery Details Not on file Complications Check Surgery Details section. Procedure Estimated Blood Loss Check Surgery Details section. Procedure Findings Check Surgery Details section. Procedure Specimens Taken Check Surgery Details section.
[2024-01-18 08:40] VITALS: PULSE 81; O2SAT 98
[2024-01-18 08:44] VITALS: BP 123/82; PULSE 80; RESP 16; TEMP 36.8
--- NOTE | 2024-01-18 09:41 | PC.OBNST ---
NST Note NST Note Start: 01/18/24 08:35 Freq: ONCE Status: Active Protocol: Document 01/18/24 09:40 CUDDYH (Rec: 01/18/24 09:41 CUDDYH [id number]) NST Note 2 Para (# of births) 1 EDC 02/24/24 Gestational Age In Weeks & Days 34 Weeks & 5 Days High Risk Factors Diabetes - Gestational Diet Controlled Patient Presented with Complaint(s) of Decreased movement Reactive Yes Appropriate for Gestational Age Yes RN Bethanie Landry RN Date 01/18/24 Reactive Yes Appropriate for Gestational Age Yes MAHNAZ Lu RN Date 01/18/24 OB NST charge Yes Complete NST Note via Write Note Yes The provider's electronic signature indicates the NST is reactive/appropriate for gestational age. *Note to provider: If an addendum is required, open the patient's chart and click on the note under the Nurse/Allied Health tab.
== END 2024-01-18 09:40 | disposition home or self-care (01) ==
LOC: OB OUT 08:29 → OB 08:30
PROVIDERS: Visit Provider Advanced Practice Midwife
DX: O24.419 Gestational diabetes mellitus in pregnancy, unspecified control (principal); O36.8130 Decreased fetal movements, third trimester, not applicable or unspecified; Z3A.34 34 weeks gestation of pregnancy
CPT/HCPCS: 59025; G0463

== ENCOUNTER 2024-01-29 16:39 | Outpatient (CLI) | payer OTHER, SELFPAY ==
--- OUTSIDE RECORDS SUMMARY | 2024-01-29 16:42 | XMS_ITS | Clinical Summary ---
Author Organization [facility] Address [address] [place] [address] Care Team Providers Care Floriculture Professor Name Role Phone Elsewhere, Pcp Primary Care Provider Unavailabl e Source Comments Patient records contain information from all sites at [facility]. For routine questions regarding patient records, call [phone] during business hours, M-F 8:00 AM - 5:00 PM Central Time. Record requests for emergency care only can be directed to [phone] at any time.[facility] Allergies Active Allergy Reactions Criticality Noted [...] as needed for nausea or vomiting. Active wyrndoc-Ez-cdfj-FA 27 mg iron- 1 mg tablet Take [...] Comments Blood Pressure 127/87 08/14/2023 3:11 PM MINING ENGINEERING TECHNOLOGIST Pulse 88 08/14/2023 3:11 PM MINING ENGINEERING TECHNOLOGIST Temperature 36.3 ??C (97.3 ??F) 08/14/2023 3:11 PM CS T Respiratory Rate 16 08/14/2023 3:11 PM MINING ENGINEERING TECHNOLOGIST Oxygen Saturation - - Inhaled Oxygen Concentration - - Weight 78.3 kg (172 lb 9.9 oz) 08/14/2023 3:11 P M MINING ENGINEERING TECHNOLOGIST Height 157 cm (5' 1.81) 03/14/2019 3:15 [...] 01/09/2018 01/09/2015 Depression Screening (Annual PHQ-2) 07/24/2023 Influenza Vaccine (#1) 2024 , 04/25/2022, 09/29/2021, Additional history exists DTaP,Tdap,and Td Vaccines (4 - Td or Tdap) 05/07/2028 05/07/2018, 02/04/2009, 03/19/2008 Hepatitis A Vaccines Completed 06/15/2012, 11/15/19 12 HPV Vaccines Completed 09/22/2017, 05/24, 04/19/2017, Additional history exists COVID-19 Vaccine Completed 06/23/2023, 09/2021, 07/14/2021, Additional history exists RSV vaccine - (32-3 6 weeks) or 60+ years (No Doses Required) Completed Goals Goal Patient Goal Type Associated Problems Recent Progress Patient-Stated? Author [facility] Care Plan for Healthy Care Plan [facility] Care Plan for Healthy No Support, Cogito [facility] - Nicotine Dependency Chronic Care Plan [facility] Care Plan for Healthy No Support, [facility] Procedures Procedure Name Priority Date/Time Associated Diagnosis Comments PATHOLOGY PRINT AND PATTERN DESIGNER CYTOLOGY Routine 01/09/2015 12:00 AM CDT from Last 3 Months or Most Recently Relevant to Health Maintenance Results * Pathology PRINT AND PATTERN DESIGNER Cytology (01/09/2015 12:00 AM CDT) 01/09/2015 Narrative LCM LAB - 02/09/2015 12:52 PM CDT [facility] [place] [address] [facility] [address] [place], [place] ??[phone] Patient Name: DUNIA LOUIS DELFIN Collected: 01/09/2015 Address: City/State/Zip: [address] [place] [address] ??[phone] Received: Reported: 01/12/2015 01/15/2015 Soc. Sec. #: ?/Age/Sex 1995 (Age: 19) ??F Physician(s): Sneha MONACO CNP [facility]: [facility][id number] [address] [facility], ??[place] ??[address] CYTOPATHOLOGY PRINT AND PATTERN DESIGNER REPORT FINAL CYTOLOGIC DIAGNOSIS Pap Smear - ThinPrep: NEGATIVE FOR INTRAEPITHELIAL LESION OR MALIGNANCY ENDOCERVICAL CELLS/COMPONENT PRESENT. SATISFACTORY SPECIMEN FOR EVALUATION. Electronically Signed Out By ez/01/15/2015 ANGELICA Jeanzynjackie JOHNS(ASCP) The Pap test is a screening [...] Out Date Complete: ? 01/19/2015 ? By: ??TAD PRICE Date Reported: ? 02/09/2015 Addendum Diagnosis Chlamydia trachomatis Amplified RNA (FROM [facility] [employer]; [address] , [place], [place]) SOURCE: ??ENDOCERVIX Chlamydia trachomatis amplified RNA: ?Negative ? Negative RECEIVED: 01/17/2015 07:45 REPORTED: 01/17/2015 22:31 REVIEWED BY [facility] PATHOLOGIST: EAE:tad January 19, 2015 KENY DIAZ M.D. SPECIMEN(S) RECEIVED: Pap Smear - ThinPrep CLINICAL HISTORY: Date of Last PAP: FIRST Date of Last Menstrual Period: 12/18/2014 Other Clinical Conditions: HPV TYPING REQUESTED: IF ASCUS CHLAMYDIA TRACHOMATIS TEST ORDERED Eli Monaco C.N.P. LAB PAP COPATH ORD RIGO [facility] LAB from Last 3 Months or Most Recently Relevant to Health Maintenance Additional Health Concerns Active Problems Noted Date Diagnosed Date [facility] Care Plan for Healthy 05/25 Care Teams Floriculture Professor Relationship Specialty Start Date End Date Elsewhere, Pcp PCP - General Internal Medicine 01/04/23
--- OUTSIDE RECORDS SUMMARY | 2024-01-29 16:42 | XMS_ITS | Referral Summary ---
Author Organization [facility] Address [address] [place] [address] Care Team Providers Care Stockroom Coordinator Name Role Phone Elsewhere, Pcp Primary Care Provider Unavailabl e Source Comments Patient records contain information from all sites at [facility]. For routine questions regarding patient records, call [phone] during business hours, M-F 8:00 AM - 5:00 PM Central Time. Record requests for emergency care only can be directed to [phone] at any time.[facility] Allergies Active Allergy Reactions Criticality [...] as needed for nausea or vomiting. Active xwmafpe-Ct-acyh-FA 27 mg iron- 1 mg tablet Take [...] Comments Blood Pressure 127/87 08/14/2023 3:11 PM ENTEROSTOMAL THERAPY NURSE Pulse 88 08/14/2023 3:11 PM ENTEROSTOMAL THERAPY NURSE Temperature 36.3 ??C (97.3 ??F) 08/14/2023 3:11 PM CS T Respiratory Rate 16 08/14/2023 3:11 PM ENTEROSTOMAL THERAPY NURSE Oxygen Saturation - - Inhaled Oxygen Concentration - - Weight 78.3 kg (172 lb 9.9 oz) 08/14/2023 3:11 P M ENTEROSTOMAL THERAPY NURSE Height 157 cm (5' 1.81) 03/14/2019 3:15 PM CDT Body Mass Index 31.77 03/14/2019 3:15 PM CDT Plan of Treatment Not on file Goals Goal Patient Goal Type Associated Problems Recent Progress Patient-Stated? Author [facility] Care Plan for Healthy Care Plan [facility] Care Plan for Healthy No Support, Cogito [facility] - Nicotine Dependency Chronic Care Plan [facility] Care Plan for Healthy No Support, [facility]ito Procedures Procedure Name Priority Date/Time Associated Diagnosis Comments PATHOLOGY RECREATIONAL AIDE CYTOLOGY Routine 01/09/2015 12:00 AM CDT from Last 3 Months or Most Recently Relevant to Health Maintenance Results * Pathology RECREATIONAL AIDE Cytology (01/09/2015 12:00 AM CDT) 01/09/2015 Narrative [facility]CM LAB - 02/09/2015 12:52 PM CDT [facility] in [place] [address] [place], [place] ??[phone] Patient Name: DUNIA LOUIS Collected: 01/09/2015 Address: City/State/Zip: [address] [place] [address] ??[phone] Received: Reported: 01/12/2015 01/15/2015 Soc. Sec. #: ?/Age/Sex 1995 (Age: 19) ??F Physician(s): Sneha MONACO CNP Copy To: ? [facility] ??[id number] [address] [facility], ??[place] ??[address] CYTOPATHOLOGY RECREATIONAL AIDE REPORT FINAL CYTOLOGIC DIAGNOSIS Pap Smear - [...] Addendum Diagnosis Chlamydia trachomatis Amplified RNA (FROM [facility]; [address], [place], [place]) SOURCE: ??ENDOCERVIX Chlamydia trachomatis amplified RNA: ?Negative ? Negative RECEIVED: 01/17/2015 07:45 REPORTED: 01/17/2015 22:31 REVIEWED BY [facility] PATHOLOGIST: EAE:tl January 19, 2015 KENY DIAZ M.D. SPECIMEN(S) RECEIVED: Pap Smear - ThinPrep CLINICAL HISTORY: Date of Last PAP: FIRST Date of Last Menstrual Period: 12/18/2014 Other Clinical Conditions: HPV TYPING REQUESTED: IF ASCUS CHLAMYDIA TRACHOMATIS TEST ORDERED Eli Monaco C.N.P. LAB PAP COPATH ORD ERABLES [facility] Organization Address City/State/ZIP Co de Phone Number [facility] LAB from Last 3 Months or Most Recently Relevant to Health Maintenance Additional Health Concerns Active Problems Noted Date Diagnosed Date [facility] Care Plan for Healthy 05/25 Care Teams Stockroom Coordinator Relationship Specialty Start Date End Date Elsewhere, Pcp PCP - General Internal Medicine 01/04/23
--- OUTSIDE RECORDS SUMMARY | 2024-01-29 16:42 | XMS_ITS ---
Author Organization [facility] Address [address] [place] [address] Care Team Providers Care Upkeep Worker Name Role Phone Unavailable Unavailable Unavailable Surgery Details Not on file Complications Check Surgery Details section. Procedure Estimated Blood Loss Check Surgery Details section. Procedure Findings Check Surgery Details section. Procedure Specimens Taken Check Surgery Details section.
--- NOTE | 2024-01-29 17:00 | CRLHL7_ITS ---
For Patients: As a result of the Century Cures Act, medical imaging exams and procedure reports are released immediately into your electronic medical record. You may view this report before your referring provider. If you have questions, please contact your health care provider. INDICATION: Third trimester scan, evaluate growth. Gestational diabetes. COMPARISON: 01/01/2024 TECHNIQUE: Real time meehan scale imaging of the fetus was performed. FINDINGS: Sonographic imaging demonstrates a single living intrauterine gestation. Fetus demonstrates a regular cardiac rate of 159 beats per minute. Fetus has a vertex position. The placenta lies left anterior. Amniotic fluid volume appears normal and there is a single deepest vertical pocket: 6.7 cm. The estimated weight is 3068gm which lies at the 70th %. On the prior OB ultrasound exam dated 01/01/2024 the estimated weight was at the 47th%. BPD 44th percentile. HC is 21st percentile. AC 97th percentile. FL 8th percentile. The HC/AC ratio measures 0.93 range (0.92-1.07). IMPRESSION: Sonographic gestational age 36 weeks 2 days and sonographic due date 02/24/2024. Good correlation with dates. Normal interval growth. Estimated weight 70th percentile. Abdominal circumference 97th percentile. Dictated by Augustine Rao MD @ 01/30/2024 6:09:08 AM (Electronically Signed)
== END 2024-01-29 16:40 | disposition home or self-care (01) ==
LOC: US 16:40
PROVIDERS: Visit Provider Advanced Practice Midwife
DX: O24.419 Gestational diabetes mellitus in pregnancy, unspecified control (principal); Z3A.36 36 weeks gestation of pregnancy
CPT/HCPCS: 76816

== ENCOUNTER 2024-01-30 14:52 | Outpatient (CLI) | payer OTHER, SELFPAY ==
--- OUTSIDE RECORDS SUMMARY | 2024-01-30 14:53 | XMS_ITS ---
Author Organization [facility] Address [address] [place] [address] Care Team Providers Care Crap Shooter Name Role Phone Unavailable Unavailable Unavailable Surgery Details Not on file Complications Check Surgery Details section. Procedure Estimated Blood Loss Check Surgery Details section. Procedure Findings Check Surgery Details section. Procedure Specimens Taken Check Surgery Details section.
--- OUTSIDE RECORDS SUMMARY | 2024-01-30 14:53 | XMS_ITS | Referral Summary ---
Author Organization [facility] Address [address] [place] [address] Care Team Providers Care Manufacturing Manager Name Role Phone Elsewhere, Pcp Primary Care Provider Unavailabl e Source Comments Patient records contain information from all sites at [facility]. For routine questions regarding patient records, call [phone] during business hours, M-F 8:00 AM - 5:00 PM Central Time. Record requests for emergency care only can be directed to [phone] at any time.[facility] Allergies Active Allergy Reactions Criticality Noted [...] as needed for nausea or vomiting. Active gbuxqzp-Md-uifh-FA 27 mg iron- 1 mg tablet Take [...] Comments Blood Pressure 127/87 08/14/2023 3:11 PM CUSTOM WOOD STAIR BUILDER Pulse 88 08/14/2023 3:11 PM CUSTOM WOOD STAIR BUILDER Temperature 36.3 ??C (97.3 ??F) 08/14/2023 3:11 PM CS T Respiratory Rate 16 08/14/2023 3:11 PM CUSTOM WOOD STAIR BUILDER Oxygen Saturation - - Inhaled Oxygen Concentration - - Weight 78.3 kg (172 lb 9.9 oz) 08/14/2023 3:11 P M CUSTOM WOOD STAIR BUILDER Height 157 cm (5' 1.81) 03/14/2019 3:15 PM CDT Body Mass Index 31.77 03/14/2019 3:15 PM CDT Plan of Treatment Not on file Goals Goal Patient Goal Type Associated Problems Recent Progress Patient-Stated? Author [facility] Care Plan for Healthy Care Plan [facility] Care Plan for Healthy No Support, [facility] - Nicotine Dependency Chronic Care Plan [facility] Care Plan for Healthy No Support, [facility] Procedures Procedure Name Priority Date/Time Associated Diagnosis Comments PATHOLOGY ORGAN ASSEMBLER CYTOLOGY Routine 01/09/2015 12:00 AM CDT from Last 3 Months or Most Recently Relevant to Health Maintenance Results * Pathology ORGAN ASSEMBLER Cytology (01/09/2015 12:00 AM CDT) 01/09/2015 Narrative [facility] - 02/09/2015 12:52 PM CDT [facility] in [place] [address] [place], [place] ??[phone] Patient Name: DUNIA LOUIS Collected: 01/09/2015 Address: City/State/Zip: [address] [place] [address] ??[phone] Received: Reported: 01/12/2015 01/15/2015 Soc. Sec. #: ?/Age/Sex 1995 (Age: 19) ??F Physician(s): Sneha MONACO CNP Copy To: ? [facility] ??[id number] [address] [facility], ??[place] ??[id number] CYTOPATHOLOGY ORGAN ASSEMBLER REPORT FINAL CYTOLOGIC DIAGNOSIS Pap Smear - [...] Addendum Diagnosis Chlamydia trachomatis Amplified RNA (FROM [facility]; [address], [place], [place]) SOURCE: ??ENDOCERVIX Chlamydia trachomatis amplified RNA: ?Negative ? Negative RECEIVED: 01/17/2015 07:45 REPORTED: 01/17/2015 22:31 REVIEWED BY [facility] PATHOLOGIST: EAE:tl January 19, 2015 KENY DIAZ M.D. SPECIMEN(S) RECEIVED: Pap Smear - ThinPrep CLINICAL HISTORY: Date of Last PAP: FIRST Date of Last Menstrual Period: 12/18/2014 Other Clinical Conditions: HPV TYPING REQUESTED: IF ASCUS CHLAMYDIA TRACHOMATIS TEST ORDERED Eli Monaco C.N.P. LAB PAP COPATH ORD ERABLES [facility] Organization Address City/State/ZIP Co de Phone Number [facility] LAB from Last 3 Months or Most Recently Relevant to Health Maintenance Additional Health Concerns Active Problems Noted Date Diagnosed Date [facility] Care Plan for Healthy 05/25 Care Teams Manufacturing Manager Relationship Specialty Start Date End Date Elsewhere, Pcp PCP - General Internal Medicine 01/04/23
--- OUTSIDE RECORDS SUMMARY | 2024-01-30 14:53 | XMS_ITS | Clinical Summary ---
Author Organization [facility] Address [address] [place] [address] Care Team Providers Care Hide And Skin Processing Worker Name Role Phone Elsewhere, Pcp Primary Care Provider Unavailabl e Source Comments Patient records contain information from all sites at [facility]. For routine questions regarding patient records, call [phone] during business hours, M-F 8:00 AM - 5:00 PM Central Time. Record requests for emergency care only can be directed to [phone] at any time.[facility] Allergies Active Allergy Reactions Criticality Noted [...] as needed for nausea or vomiting. Active aevukol-Ln-iyja-FA 27 mg iron- 1 mg tablet Take [...] Comments Blood Pressure 127/87 08/14/2023 3:11 PM LIME VAT TENDER Pulse 88 08/14/2023 3:11 PM LIME VAT TENDER Temperature 36.3 ??C (97.3 ??F) 08/14/2023 3:11 PM CS T Respiratory Rate 16 08/14/2023 3:11 PM LIME VAT TENDER Oxygen Saturation - - Inhaled Oxygen Concentration - - Weight 78.3 kg (172 lb 9.9 oz) 08/14/2023 3:11 P M LIME VAT TENDER Height 157 cm (5' 1.81) 03/14/2019 3:15 [...] Problems Recent Progress Patient-Stated? Author [facility] Care Plan for Healthy Care Plan [facility] Care Plan for Healthy No Support, [facility] - Nicotine Dependency Chronic Care Plan [facility] Care Plan for Healthy No Support, [facility] Procedures Procedure Name Priority Date/Time Associated Diagnosis Comments PATHOLOGY FATS AND OILS LOADER CYTOLOGY Routine 01/09/2015 12:00 AM CDT from Last 3 Months or Most Recently Relevant to Health Maintenance Results * Pathology FATS AND OILS LOADER Cytology (01/09/2015 12:00 AM CDT) 01/09/2015 Narrative [facility] LAB - 02/09/2015 12:52 PM CDT [facility] [place] [address] [facility] [address] [place], [place] ??[phone] Patient Name: DUNIA LOUIS DELFIN Collected: 01/09/2015 Address: City/State/Zip: [address] [place] [address] ??[phone] Received: Reported: 01/12/2015 01/15/2015 Soc. Sec. #: ?/Age/Sex 1995 (Age: 19) ??F Physician(s): Sneha MONACO CNP Copy [facility]: ? [facility] ??[phone] [facility], ??[place] ??[id number] CYTOPATHOLOGY FATS AND OILS LOADER REPORT FINAL CYTOLOGIC DIAGNOSIS Pap Smear - [...] Addendum Diagnosis Chlamydia trachomatis Amplified RNA (FROM [facility] [employer]; [address] , [place], [place]) SOURCE: ??ENDOCERVIX Chlamydia trachomatis amplified RNA: ?Negative ? Negative RECEIVED: 01/17/2015 07:45 REPORTED: 01/17/2015 22:31 REVIEWED BY [facility] PATHOLOGIST: EAE:tad January 19, 2015 KENY DIAZ [...] Problems Noted Date Diagnosed Date [facility] Care Plan for Healthy 05/25 Care Teams Hide And Skin Processing Worker Relationship Specialty Start Date End Date Elsewhere, Pcp PCP - General Internal Medicine 01/04/23
[2024-01-31 17:30] LABS: Strep B DNA Probe Negative (Negative)
[2024-01-31 17:40] LABS: Strep B Susceptibility Needed? No
== END 2024-01-30 14:53 | disposition home or self-care (01) ==
LOC: NFLDREF 14:52
PROVIDERS: Visit Provider Advanced Practice Midwife
DX: Z34.93 Encounter for supervision of normal pregnancy, unspecified, third trimester (principal); Z3A.36 36 weeks gestation of pregnancy
CPT/HCPCS: 87081; 87653

== ENCOUNTER 2024-02-21 05:50 | Inpatient (IN) | payer OTHER, SELFPAY ==
[2024-02-21] VITALS (22 sets, daily range): BP systolic 94–222; BP diastolic 65–98; PULSE 70–202; RESP 16–18; TEMP 36.4–38.7; O2SAT 83–100; BMI 34.6
--- OUTSIDE RECORDS SUMMARY | 2024-02-21 05:36 | XMS_ITS | Referral Summary ---
Author Organization [facility] Address [address] [place] [address] Care Team Providers Care Account Resolution Specialist Name Role Phone Elsewhere, Pcp Primary Care Provider Unavailabl e Source Comments Patient records contain information from all sites at [facility]. For routine questions regarding patient records, call [phone] during business hours, M-F 8:00 AM - 5:00 PM Central Time. Record requests for emergency care only can be directed to [phone] at any time.[facility] Allergies Active Allergy Reactions Criticality Noted [...] as needed for nausea or vomiting. Active qesqwwr-Sb-xyik-FA 27 mg iron- 1 mg tablet Take 1 tablet by mouth daily. Active docusate sodium (COLACE) 100 mg capsule Take 100 mg by mouth daily. 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 [...] Comments Blood Pressure 127/87 08/14/2023 3:11 PM TECHNICIAN PREVENTATIVE MEDICINE Pulse 88 08/14/2023 3:11 PM TECHNICIAN PREVENTATIVE MEDICINE Temperature 36.3 ??C (97.3 ??F) 08/14/2023 3:11 PM CS T Respiratory Rate 16 08/14/2023 3:11 PM TECHNICIAN PREVENTATIVE MEDICINE Oxygen Saturation - - Inhaled Oxygen Concentration - - Weight 78.3 kg (172 lb 9.9 oz) 08/14/2023 3:11 P M TECHNICIAN PREVENTATIVE MEDICINE Height 157 cm (5' 1.81) 03/14/2019 3:15 PM CDT Body Mass Index 31.77 03/14/2019 3:15 PM CDT Plan of Treatment Not on file Goals Goal Patient Goal Type Associated Problems Recent Progress Patient-Stated? Author [facility] Care Plan for Healthy Care Plan [facility] Care Plan for Healthy No Support, [facility] - Nicotine Dependency Chronic Care Plan [facility] Care Plan for Healthy No Support, [facility] Procedures Procedure Name Priority Date/Time Associated Diagnosis Comments PATHOLOGY DRAFTER ELECTRICAL CYTOLOGY Routine 01/09/2015 12:00 AM CDT from Last 3 Months or Most Recently Relevant to Health Maintenance Results * Pathology DRAFTER ELECTRICAL Cytology (01/09/2015 12:00 AM CDT) 01/09/2015 Narrative [facility] LAB - 02/09/2015 12:52 PM CDT [facility] in [place] [address] [place], [place] ??[phone] Patient Name: DUNIA LOUIS Collected: 01/09/2015 Address: [facility]/Zip: [address] [place] [address] ??[phone] Received: Reported: 01/12/2015 01/15/2015 Soc. Sec. #: ?/Age/Sex 1995 (Age: 19) ??F Physician(s): Sneha MONACO CNP Copy To: ? [facility] ??[phone] [facility], ??[place] ??[id number] CYTOPATHOLOGY DRAFTER ELECTRICAL REPORT FINAL CYTOLOGIC DIAGNOSIS Pap Smear - [...] Addendum Diagnosis Chlamydia trachomatis Amplified RNA (FROM [facility]; [address], [place], [place]) SOURCE: ??ENDOCERVIX Chlamydia trachomatis amplified RNA: ?Negative ? Negative RECEIVED: 01/17/2015 07:45 REPORTED: 01/17/2015 22:31 REVIEWED BY [facility] PATHOLOGIST: EAE:tl January 19, 2015 KENY DIAZ M.D. SPECIMEN(S) RECEIVED: Pap Smear - ThinPrep CLINICAL HISTORY: Date of Last PAP: FIRST Date of Last Menstrual Period: 12/18/2014 Other Clinical Conditions: HPV TYPING REQUESTED: IF ASCUS CHLAMYDIA TRACHOMATIS TEST ORDERED Eli Monaco C.N.P. LAB PAP COPATH ORD ERABLES [facility] Organization Address City/State/ZIP Co de Phone Number [facility] LAB from Last 3 Months or Most Recently Relevant to Health Maintenance Additional Health Concerns Active Problems Noted Date Diagnosed Date [facility] Care Plan for Healthy 05/25 Care Teams Account Resolution Specialist Relationship Specialty Start Date End Date Elsewhere, Pcp PCP - General Internal Medicine 01/04/23
--- OUTSIDE RECORDS SUMMARY | 2024-02-21 05:36 | XMS_ITS | Clinical Summary ---
Author Organization [facility] Address [address] [place] [address] Care Team Providers Care Cokeman Name Role Phone Elsewhere, Pcp Primary Care Provider Unavailabl e Source Comments Patient records contain information from all sites at [facility]. For routine questions regarding patient records, call [phone] during business hours, M-F 8:00 AM - 5:00 PM Central Time. Record requests for emergency care only can be directed to [phone] at any time.[facility] Allergies Active Allergy Reactions Criticality Noted Date [...] as needed for nausea or vomiting. Active vpgayrl-Pk-qdhe-FA 27 mg iron- 1 mg tablet Take [...] Comments Blood Pressure 127/87 08/14/2023 3:11 PM HUMAN GEOGRAPHY INSTRUCTOR Pulse 88 08/14/2023 3:11 PM HUMAN GEOGRAPHY INSTRUCTOR Temperature 36.3 ??C (97.3 ??F) 08/14/2023 3:11 PM CS T Respiratory Rate 16 08/14/2023 3:11 PM HUMAN GEOGRAPHY INSTRUCTOR Oxygen Saturation - - Inhaled Oxygen Concentration - - Weight 78.3 kg (172 lb 9.9 oz) 08/14/2023 3:11 P M HUMAN GEOGRAPHY INSTRUCTOR Height 157 cm (5' 1.81) 03/14/2019 3:15 [...] Type Associated Problems Recent Progress Patient-Stated? Author [facility] Care Plan for Healthy Care Plan [facility] Care Plan for Healthy No Support, [facility] - Nicotine Dependency Chronic Care Plan [facility] Care Plan for Healthy No Support, [facility] Procedures Procedure Name Priority Date/Time Associated Diagnosis Comments PATHOLOGY GRAIN SPOUTER CYTOLOGY Routine 01/09/2015 12:00 AM CDT from Last 3 Months or Most Recently Relevant to Health Maintenance Results * Pathology GRAIN SPOUTER Cytology (01/09/2015 12:00 AM CDT) 01/09/2015 Narrative [facility] LAB - 02/09/2015 12:52 PM CDT [facility] [place] [address] [place], [place] ??[phone] Patient Name: DUNIA LOUIS Collected: 01/09/2015 Address: City/State/Zip: [address] [place] [address] ??[phone] Received: Reported: 01/12/2015 01/15/2015 Soc. Sec. #: ?/Age/Sex 1995 (Age: 19) ??F Physician(s): Sneha MONACO CNP Copy To: ? [facility] IN [facility] ??[phone] [facility], ??[place] ??[address] CYTOPATHOLOGY GRAIN SPOUTER REPORT FINAL CYTOLOGIC DIAGNOSIS Pap Smear - [...] Diagnosis Chlamydia trachomatis Amplified RNA (FROM [facility]; [address] , [place], [place]) SOURCE: ??ENDOCERVIX Chlamydia trachomatis amplified RNA: ?Negative ? Negative RECEIVED: 01/17/2015 07:45 REPORTED: 01/17/2015 22:31 REVIEWED BY [facility] PATHOLOGIST: EAE:tad January 19, 2015 KENY DIAZ M.D. SPECIMEN(S) RECEIVED: Pap Smear - ThinPrep CLINICAL HISTORY: Date of Last PAP: FIRST Date of Last Menstrual Period: 12/18/2014 Other Clinical Conditions: HPV TYPING REQUESTED: IF ASCUS CHLAMYDIA TRACHOMATIS TEST ORDERED Eli Monaco C.N.P. LAB PAP COPATH ORD ERABLES [facility] from Last 3 Months or Most Recently Relevant to Health Maintenance Additional Health Concerns Active Problems Noted Date Diagnosed Date [facility] Care Plan for Healthy 05/25 Care Teams Cokeman Relationship Specialty Start Date End Date Elsewhere, Pcp PCP - General Internal Medicine 01/04/23
--- OUTSIDE RECORDS SUMMARY | 2024-02-21 05:36 | XMS_ITS ---
Author Organization [facility] Address [address] [place] [id number] Care Team Providers Care Planning Assistant Name Role Phone Unavailable Unavailable Unavailable Surgery Details Not on file Complications Check Surgery Details section. Procedure Estimated Blood Loss Check Surgery Details section. Procedure Findings Check Surgery Details section. Procedure Specimens Taken Check Surgery Details section.
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
[2024-02-21 06:47] LABS: Basophils Percent Auto 0.2 % (0.0-3.0); Eosinophils Percent Auto 0.4 % (0.0-7.0); Hematocrit 43.1 % (33.0-51.0); Immature Granulocytes Pct Auto 0.2 %; Lymphocytes Percent Auto 19.6 % (20-44); Mean Corpuscular HGB Conc 35 gm/dL (32-36); Mean Corpuscular Hemoglobin 30 pg (26-34); Mean Corpuscular Volume 86 fL (80-100); Monocytes Percent Auto 3.4 % (0.0-11.0); Neutrophils Percent Auto 76.2 % (42.0-72.0); Platelet Count* 182 K/uL (140-440); RDW Coefficient of Variation % 12.3 % (11.5-15.5); Red Blood Count 5.04 m/uL (4.00-5.20); Slide Review Reflex No; White Blood Count* 17.21 K/uL (4.50-11.00)
[2024-02-21] MEDS: OXYTOCIN 10 UNIT/ML INJ IM (06:58)
[2024-02-21] MEDS: miSOPROStoL 800 MCG/4 TABLET SUBLINGUAL (07:15)
--- NOTE | 2024-02-21 07:30 | W.PM.OBVAGDE ---
OB Procedure Vag Delivery Mother Details Mother Details: Dunia is a 28 year-old, 2, Para 1, admitted on 02/21/24 at 39.4 Days gestation. : 2 Para: 2 Weeks Gestation: 39.4 Admission Date: 02/21/24 Additional Details Amniotic Membrane Status: SROM Amniotic Membrane Rupture Date: 02/21/24 Amniotic Membrane Rupture Time: 06:45 (no gush observed or felt by pt. Assumed with pushing.) Amniotic Membrane Fluid Description: Clear Analgesia/Anesthesia Type: None Waterbirth: Yes Pitcoin: Yes (AMTSL only) Intrapartal Events: Precipitous Labor <3 Hrs Labor Onset: 04:00 Complete: 06:45 (presumed with pushing ) Pushin:45 Heart: heart tones during second stage were not tracing due to pt and position and rapid descent. Prior to second stage baseline 115, + accels, - decels, moderate variability. Delivery Details Delivery Date: 02/21/24 Delivery Time: 06:49 Route of delivery: Infant Gender: Female Infant Viability: Alive; Heart Rate Present Position at Delivery: OA Delivery Details: Patient was admitted for spontaneous and progressed normally. SROM presumed with pushing at 0645 with clear fluid. No leaking of fluid or gush felt by patient or observed before pushing. Patient was presumed complete at with pushing at 0645. of a viable female at 0649 in hands and knees in the tub. Vertex delivered OA. No shoulder. Umbilical cord was draped over the shoulders, noted after delivery and reduced easily. Body delivered easily and without incident. passed to mothers abdomen with a vigorous cry. Cord was clamped and cut at > 5 minutes. APGARS were 7 at one minute and 9 at five minutes respectively. Mouth was bulb suctioned. Intact placenta with a 3 vessel cord delivered spontaneously at 0705. Fundus firm. Intact perineum identified. EBL 200mL in tub and QBL 200 mL in the drape. Mother and baby stable; mother plans to breastfeed. Infant weight pending.? 1 Minute Interval Total Score: 7 5 Minute Interval Total Score: 9 Additional Details Shoulder Dystocia: No Placenta Delivery Time: 07:05 Placental Delivery Description: Spontaneous Procedure Done: Global Blood Loss: 400 Laceration: None Episiotomy Description: None Blood Loss Measurement Type: QBL Sponge/Need Count Correct: Yes Cord Vessel Description: 3 Vessels and Around Body (draped around the shoulders, reduced after delivery ) Event Summary Status: Mother and infant were stable after delivery. Disposition: floor
[2024-02-21 09:16] LABS: Basophils Percent Auto 0.1 % (0.0-3.0); Hemoglobin* 13.4 gm/dL (12.0-16.0); Immature Granulocytes Pct Auto 0.1 %; Lymphocytes Percent Auto 5.4 % (20-44); Mean Corpuscular HGB Conc 34 gm/dL (32-36); Mean Corpuscular Hemoglobin 30 pg (26-34); Mean Corpuscular Volume 87 fL (80-100); Monocytes Percent Auto 2.8 % (0.0-11.0); Neutrophils Percent Auto 91.6 % (42.0-72.0); Platelet Count* 160 K/uL (140-440); RDW Coefficient of Variation % 12.5 % (11.5-15.5); Red Blood Count 4.49 m/uL (4.00-5.20); White Blood Count* 20.88 K/uL (4.50-11.00)
--- NOTE | 2024-02-21 09:21 | P.OBPN_ITS ---
OB - PN:Subj Subjective Time Seen by Provider: 09:30 Date Seen: 02/21/24 Interval history: Dunia is a 28 y.o. who was admitted to L & D for spontaneous onset of labor in the advanced stages. ?She had an uncomplicated NVD.?The patient feels well. ?The pain is well controlled with current medications. Approximately 3 hours after the a fever was documented and rechecked. Pt at the time was having chills and not feeling well. CBC was drawn, IV fluid bolus given and antibiotics recommended. Tylenol was also offered. Blankets were removed and patient cooled with ice pack to her chest. She is feeling much better and temperature is down to 99.8. She has not yet received any Tylenol or antibiotics since she wanted to see what her CBC showed. She is planning to breastfeed. No nausea, increased or malodorous lochia. She is voiding. OB - PN: Obj Exam Physical Exam: Vital signs: Temp Pulse Resp BP Pulse Ox 97.7 F 103 H 18 124/80 92 02/21/24 06:22 02/21/24 08:41 02/21/24 06:22 02/21/24 08:41 02/21/24 06:00 Narrative: GENERAL APPEARANCE:? normal affect, alert, no distress MOOD:? appropriate OB - PN: Obj Data Labs Labs: Laboratory Results - last 24 hr 02/21/24 06:32 WBC 17.21 H RBC 5.04 Hgb 15.0 Hct 43.1 MCV 86 MCH 30 MCHC 35 RDW Coeff of Rafael 12.3 Plt Count 182 Neut % (Auto) 76.2 H Lymph % (Auto) 19.6 L [place] % (Auto) 3.4 Eos % (Auto) 0.4 Baso % (Auto) 0.2 Neut # (Auto) 13.10 H Lymph # (Auto) 3.40 H [place] # (Auto) 0.60 Eos # (Auto) 0.10 Baso # (Auto) 0.00 Abs Immat Gran (auto) 0.00 Imm/Tot Granulo (auto) 0.2 Blood Type AB Positive Antibody Screen NEGATIVE OB - PN: A/P Delivery Assessment and Plan (1) Gestational diabetes: Status: Acute (2) care and examination of lactating mother: Status: Acute (3) endometritis: Status: Acute Plan Comments: 40w4d S/P NSVB PP endometritis Reviewed CBC findings. Pt agreeable to Unasyn antibiotics x 24 hours. May still consider discharge tomorrow if all remains stable. Encouraged patient to notify us of any new concerns or symptoms. They agree with plan and have no further questions at this time.
[2024-02-21 09:22] LABS: Slide Review Reflex No
[2024-02-21] MEDS: AMPICILLIN/SULBACTAM 3 GM in 0.9 % SODIUM CHLORIDE Mini-bag 100 ML IVPB ×3 (10:20→22:06)
[2024-02-21] MEDS: ACETAMINOPHEN 500 MG TABLET 1000 MG PO ×2 (11:48→19:18)
[2024-02-21] MEDS: IBUPROFEN 600 MG TABLET PO (16:22)
[2024-02-22 01:15] VITALS: BP 119/79; PULSE 88; RESP 16; TEMP 36.5
[2024-02-22] MEDS: IBUPROFEN 600 MG TABLET PO ×2 (01:18→19:40)
[2024-02-22 03:59] VITALS: BP 123/86; PULSE 88; RESP 18; TEMP 36.5
[2024-02-22] MEDS: AMPICILLIN/SULBACTAM 3 GM in 0.9 % SODIUM CHLORIDE Mini-bag 100 ML IVPB ×2 (04:01→10:21)
[2024-02-22 06:43] LABS: Hemoglobin* 11.5 gm/dL (12.0-16.0)
[2024-02-22 08:16] VITALS: BP 108/74; PULSE 72; RESP 18; TEMP 36.5; O2SAT 97
[2024-02-22] MEDS: ACETAMINOPHEN 500 MG TABLET 1000 MG PO ×2 (08:28→23:29)
[2024-02-22] MEDS: DOCUSATE SODIUM 100 MG CAPSULE PO (08:28)
[2024-02-22 14:21] VITALS: BP 111/77; PULSE 79; RESP 18; TEMP 36.5; O2SAT 98
--- NOTE | 2024-02-22 15:29 | PM.OBPNVD1 ---
OB - PN:Subj Subjective Time Seen by Provider: 08:30 Date Seen: 02/22/24 Narrative: Dunia is a 28 y.o. who was admitted to L & D for labor.? She had an uncomplicated NVD.? ?? The patient feels well.? The pain is well controlled with current medications.? She has no new complaints.? She is breast feeding and reports things are going well.? the patient has done well.? Vitals have been stable since receiving antibiotics for fever. She will be afebrile 24 hours around 0900.? Has a good appetite, is tolerating a general diet.? She is voiding without difficulty.? She is passing gas and has not had a bowel movement.? She is ambulating and denies any dizziness.? Has Small amount of rubra lochia.?She would like to discharge today but given her fever after delivery her will not be discharged. Pt will stay an additional night as a result. OB - PN: Obj Exam Physical Exam: Vital signs: Temp Pulse Resp BP Pulse Ox O2 Del Method 97.7 F 79 18 111/77 98 Room Air 02/22/24 14:21 02/22/24 14:21 02/22/24 14:21 02/22/24 14:21 02/22/24 14:21 02/22/24 14:21 Narrative: GENERAL APPEARANCE:? normal affect, alert, no distress? MOOD:? appropriate? HEENT: normocephalic, neck supple, full ROM? CHEST:? Symmetrical chest wall movement.? Normal respiratory effort.? Clear to auscultation ? HEART:? regular rate and rhythm? ABDOMEN:? soft, non-tender. Uterine fundus is firm, at Umbilicus, Midline and is appropriate for the stage of recovery.? Bowel sounds present.? PERINEUM:? mild edema of the perineum, intact EXTREMITIES:? normal and no edema? OB - PN: Obj Data Labs Labs: Laboratory Results - last 24 hr 02/22/24 06:23 Hgb 11.5 L OB - PN: A/P Delivery Assessment and Plan (1) Gestational diabetes: Status: Acute (2) care and examination of lactating mother: Status: Acute (3) endometritis: Status: Acute Plan day: 1 Plan: routine care Comments: G 2 P 2 status post uncomplicated NVD?? Acute onset of fever approximately 3 hours PP treated with antibiotics, now afebrile 24 hours ? 1.? Continue route PP cares? 2.? .? May see if desired? 3.? Anticipate discharge home tomorrow?
--- NOTE | 2024-02-22 18:04 | PC.NURSE ---
Nursing Care Hours: [id number] Pt this shift pleasant and independent in cares. Engaged with . Tolerating breast feeding. ABX infused this morning. VSS. No c/o pain. No BM reported, PRN stool softener given. No c/o headache, SOB, or chest pain.
[2024-02-22 23:00] VITALS: BP 121/82; PULSE 74; RESP 18; TEMP 36.5; O2SAT 97
[2024-02-23 00:59] LABS: Rapid Plasma Reagin (RPR) Reactive (Non Reactive)
[2024-02-23] MEDS: IBUPROFEN 600 MG TABLET PO (03:45)
[2024-02-23] MEDS: ACETAMINOPHEN 500 MG TABLET 1000 MG PO (06:35)
--- NOTE | 2024-02-23 06:56 | PC.NURSE ---
Shift note: Pt phil, VSS. 2 hour fasting glucose started this AM, fasting blood sugar 79. Pt drank glucocrush at 0640.
[2024-02-23 06:59] LABS: Glucose Fasting 81 mg/dl (70-95)
[2024-02-23 08:01] VITALS: BP 119/83; PULSE 73; RESP 18; TEMP 36.6
--- NOTE | 2024-02-23 08:42 | P.DS_ITS ---
DS: Providers Provider Date Seen: 02/23/24 Date of admission: 02/21/24 05:50 Primary care physician: Not a Local Provider Admitting Clinician: Sidra Cuadra CNM Attending Physician on discharge: Argelia Paredes CNM DS: Diagnosis Discharge Diagnosis (1) care and examination of lactating mother: Status: Acute (2) endometritis: Status: Acute Exam Narrative: Exam Narrative: GENERAL APPEARANCE:? normal affect, alert, no distress MOOD:? appropriate CHEST:? clear to auscultation HEART:? regular rate and rhythm ABDOMEN:? soft, non-tender the uterine fundus is At Umbilicus, Midline and is appropriate for the stage of recovery. PERINEUM:? mild edema of the perineum. EXTREMITIES:? normal and no edema Const: Vital Signs, click to edit/add: Vital Signs - 24 hr 02/22/24 14:21 02/22/24 23:00 02/23/24 08:01 Temperature 97.7 F 97.7 F 97.8 F Pulse Rate [Pulse Oximeter] 79 74 73 Respiratory Rate 18 18 18 Blood Pressure [Ri ght Arm] 111/77 121/82 119/83 Pulse Oximetry 98 97 Oxygen Delivery Me thod Room Air Room Air Room Air Documenting provider has reviewed patient's vital signs: yes OB - DS: Summary Hospital Course Hospital Course: Dunia is a 28 y.o. G 2 P 2 who was admitted to L & D for spontaneous onset of labor. ?She had a NVD that was complicated fever. She was treated with antibiotics, those are complete and she has since been afebrile. The patient feels well. ?The pain is well controlled with current medications. ?She has no new complaints. ?She is breast feeding and reports things are going well. the patient has done well.? Vitals have been stable.? Has a good appetite, is tolerating a general diet. ?She is voiding without difficulty.? She is passing gas and has not had a bowel movement.? She is ambulating and denies any dizziness.? Has small amount of rubra lochia. Problems: Endometritis plan: Discharge home with baby. Follow up in 2 weeks and 6 weeks. , may see if needed Hgb 11.5. Peripartum Data Infant delivery method: Vaginal Laceration description: None complications: other (Endometritis) [place] Gender: Female Infant Discharge Plan: Home Status at Discharge Functional status at discharge: independent ambulation Overall status at discharge: patient is progressing back to baseline Time Spent with Patient Time attestation: Total time spent providing and/or coordinating discharge services: Time spent: Less than 30 minutes Discharge Plan Discharge Disposition: Home, Self-Care Date of Admission: 02/21/24 05:50 Attending Provider on Discharge: Argelia Paredes Primary Care Provider: Provider,Not a Local Condition: Stable Anticipated Discharge Date/Time: 02/23/24 12:00 Discharge Medications: New docusate sodium 100 mg Capsule 100 mg PO DAILY Qty: 90 0RF ibuprofen 600 mg Tablet 600 mg PO Q6H PRNQty: 60 0RF acetaminophen 500 mg Tablet 1,000 mg PO Q6H PRNQty: 0 0RF Continued PNV no.571-pbbd-rzhjr acid 28 mg iron- 800 mcg tablet PO calcium carbonate [Tums] 200 mg calcium (500 mg) tablet,chewable 200 mg PO BID magnesium 250 mg tablet 250 mg PO QDAY vitamin E 1,150 unit/1.25 mL liquid 1,150 unit PO ONCE cholecalciferol (vitamin D3) 25 mcg (1,000 unit) capsule 25 mcg PO QDAY Probiotic Acidophilus 250 million cell capsule 1,000 mmu cells PO QDAY Discontinued (DME) Test Strips Misc See Rx Instructions .MEDSUPPLY Qty: 200 3RF Rx Instructions: Test blood sugar 4 times daily. (DME) Blood Glucose Meter Misc See Rx Instructions .MEDSUPPLY Qty: 1 0RF Rx Instructions: As directed (DME) lancets Misc See Rx Instructions .MEDSUPPLY Qty: 200 3RF Rx Instructions: Test blood sugar 4 times daily. Discharge Orders: Discharge Order (Routine); Ordered 02/23/24 Ordered By: Argelia Paredes Patient Education: OB Over the Counter Medication Information, OB Vaginal/Breast Feeding Additional Instructions: Discharge instructions were reviewed with the patient including signs and symptoms of infection and home going medications Nothing vaginally for 6 weeks: no tampons or intercourse Off Work or School for 6 weeks 2-week visit: discuss feeding concerns, review control options and screen for anxiety/depression. 6-week visit for an annual exam. consultation services are available to all mothers and babies for the first year after delivery.? To make an appointment, please call [phone]. Activity Level: Activity as Tolerated Discharge Diet: Regular Follow Up Appointments: [facility] [Provider Group] Forms: MyHealth Info Instructions
[2024-02-23] MEDS: DOCUSATE SODIUM 100 MG CAPSULE PO (08:59)
[2024-02-23 09:06] LABS: Glucose 2 Hour 104 mg/dl (70-155)
[2024-02-24 00:43] LABS: Treponema pallidum AbTP-PA Non Reactive (Non Reactive)
== END 2024-02-23 10:40 | disposition home or self-care (01) | DRG 806 ==
LOC: OB OUT 05:50 → OB 05:50
PROVIDERS: Advanced Practice Midwife; Midwife; Admitting Provider Advanced Practice Midwife; Visit Provider Advanced Practice Midwife
DX: O24.420 Gestational diabetes mellitus in childbirth, diet controlled (principal); O86.12 Endometritis following delivery; Z37.0 Single live birth; O99.344 Other mental disorders complicating childbirth; F41.9 Anxiety disorder, unspecified; Z3A.39 39 weeks gestation of pregnancy; O62.3 Precipitate labor
CPT/HCPCS: 36415; 82947; 82950; 82962; 85018; 85025; 86592; 86593; 86780; 86850; 86900; 86901; A9270; J0295; J2590

== ENCOUNTER 2024-04-03 11:03 | Outpatient (CLI) | payer OTHER, SELFPAY ==
--- OUTSIDE RECORDS SUMMARY | 2024-04-29 14:05 | XMS_ITS | Clinical Summary ---
Author Organization [facility] Address [address] [place] [address] Care Team Providers Care Foundry Molder Name Role Phone Elsewhere, Pcp Primary Care Provider Unavailabl e Source Comments Patient records contain information from all sites at [facility]. For routine questions regarding patient records, call [phone] during business hours, M-F 8:00 AM - 5:00 PM Central Time. Record requests for emergency care only can be directed to [phone] at any time.[facility] Allergies Active Allergy Reactions Criticality Noted [...] as needed for nausea or vomiting. Active imlkivs-Dr-daio-FA 27 mg iron- 1 mg tablet Take [...] Comments Blood Pressure 127/87 08/14/2023 3:11 PM OLERICULTURIST Pulse 88 08/14/2023 3:11 PM OLERICULTURIST Temperature 36.3 ??C (97.3 ??F) 08/14/2023 3:11 PM CS T Respiratory Rate 16 08/14/2023 3:11 PM OLERICULTURIST Oxygen Saturation - - Inhaled Oxygen Concentration - - Weight 78.3 kg (172 lb 9.9 oz) 08/14/2023 3:11 P M OLERICULTURIST Height 157 cm (5' 1.81) 03/14/2019 3:15 [...] 01/09/2018 01/09/2015 Depression Screening (Annual PHQ-2) 07/24/2023 COVID-19 Vaccine (5 - 2023-2 5 season) 2024 06/23/2023, 04/25/2022, 07/14/2021, Additional history exists Influenza Vaccine (#1) 2024 , 04/25/2022, 09/29/2021, Additional history exists DTaP,Tdap,and Td Vaccines (4 - Td or Tdap) 05/07/2028 05/07/2018, 02/04/2009, 03/19/2008 Hepatitis A Vaccines Completed 06/15/2012, 11/15/19 12 HPV Vaccines Completed 09/22/2017, 05/24, 04/19/2017, Additional history exists RSV vaccine - (32-3 6 weeks) or 60+ years (No Doses Required) Completed Procedures Procedure Name Priority Date/Time Associated Diagnosis Comments PATHOLOGY COMPUTER TECH CYTOLOGY Routine 01/09/2015 12:00 AM CDT from Last 3 Months or Most Recently Relevant to Health Maintenance Results * Pathology COMPUTER TECH Cytology (01/09/2015 12:00 AM CDT) 01/09/2015 Narrative [facility] - 02/09/2015 12:52 PM CDT [facility] [place] [address] [place], [place] ??[phone] Patient Name: DUNIA LOUIS DELFIN Collected: 01/09/2015 Address: City/State/Zip: [address] [place] [address] ??[phone] Received: Reported: 01/12/2015 01/15/2015 Soc. Sec. #: ?/Age/Sex 1995 (Age: 19) ??F Physician(s): Sneha MONACO CNP Copy To: ? [facility] ??[id number] [address] [facility], ??[place] ??[id number] CYTOPATHOLOGY COMPUTER TECH REPORT FINAL CYTOLOGIC DIAGNOSIS Pap Smear - [...] Date Complete: ? 01/19/2015 ? By: ??TL [facility] Date Reported: ? 02/09/2015 Addendum Diagnosis Chlamydia trachomatis Amplified RNA (FROM [facility]; [address]; [place], [place]) SOURCE: ??ENDOCERVIX Chlamydia trachomatis amplified RNA: ?Negative ? Negative RECEIVED: 01/17/2015 07:45 REPORTED: 01/17/2015 22:31 RE[facility]ED BY [facility] PATH[facility]IST: [email or web address] January 19, 2015 KENY DIAZ M.D. SPECIMEN(S) RECEIVED: Pap Smear - ThinPrep CLINICAL HISTORY: Date of Last PAP: FIRST Date of Last Menstrual Period: 12/18/2014 Other Clinical Conditions: HPV TYPING REQUESTED: IF ASCUS CHLAMYDIA TRACHOMATIS TEST ORDERED Eli Monaco C.N.P. LAB PAP COPATH ORD ER[facility]LES [facility] LAB from Last 3 Months or Most Recently Relevant to Health Maintenance Care Teams Foundry Molder Relationship Specialty Start Date End Date Elsewhere, Pcp PCP - General Internal Medicine 01/04/23
--- OUTSIDE RECORDS SUMMARY | 2024-04-29 14:05 | XMS_ITS | Referral Summary ---
Author Organization [facility] Address [address] [place] [address] Care Team Providers Care Manager Leadership Development Name Role Phone Elsewhere, Pcp Primary Care Provider Unavailabl e Source Comments Patient records contain information from all sites at [facility]. For routine questions regarding patient records, call [phone] during business hours, M-F 8:00 AM - 5:00 PM Central Time. Record requests for emergency care only can be directed to [phone] at any time.[facility] Allergies Active Allergy Reactions Criticality Noted [...] as needed for nausea or vomiting. Active zowmfcf-Fg-tlzk-FA 27 mg iron- 1 mg tablet Take [...] Comments Blood Pressure 127/87 08/14/2023 3:11 PM CLAY MINER Pulse 88 08/14/2023 3:11 PM CLAY MINER Temperature 36.3 ??C (97.3 ??F) 08/14/2023 3:11 PM CS T Respiratory Rate 16 08/14/2023 3:11 PM CLAY MINER Oxygen Saturation - - Inhaled Oxygen Concentration - - Weight 78.3 kg (172 lb 9.9 oz) 08/14/2023 3:11 P M CLAY MINER Height 157 cm (5' 1.81) 03/14/2019 3:15 PM CDT Body Mass Index 31.77 03/14/2019 3:15 PM CDT Plan of Treatment Not on file Procedures Procedure Name Priority Date/Time Associated Diagnosis Comments PATHOLOGY PRESS SETUP OPERATOR CYTOLOGY Routine 01/09/2015 12:00 AM CDT from Last 3 Months or Most Recently Relevant to Health Maintenance Results * Pathology PRESS SETUP OPERATOR Cytology (01/09/2015 12:00 AM CDT) 01/09/2015 Narrative [facility] - 02/09/2015 12:52 PM CDT [facility] [place] [address] [place], [place] ??[phone] Patient Name: DUNIA LOUIS Collected: 01/09/2015 Address: [facility]/State/Zip: [address] [place] [address] ??[phone] Received: Reported: 01/12/2015 01/15/2015 Soc. Sec. #: ?/Age/Sex 1995 (Age: 19) ??F Physician(s): Sneha MONACO CNP Copy To: ? [facility] ??[id number] [address] [facility], ??[place] ??[address] CYTOPATHOLOGY PRESS SETUP OPERATOR REPORT FINAL CYTOLOGIC DIAGNOSIS Pap Smear [...] Date Complete: ? 01/19/2015 ? By: ??TL ALBERT Date Reported: ? 02/09/2015 Addendum Diagnosis Chlamydia trachomatis Amplified RNA (FROM [facility] [employer]; [address]; , [place], [place]) SOURCE: ??ENDOCERVIX Chlamydia trachomatis amplified RNA: ?Negative ? Negative RECEIVED: 01/17/2015 07:45 REPORTED: 01/17/2015 22:31 REVIEWED BY [facility] PATHOLOGIST: EAE:tl January 19, 2015 KENY DIAZ M.D. SPECIMEN(S) RECEIVED: Pap Smear - ThinPrep CLINICAL HISTORY: Date of Last PAP: FIRST Date of Last Menstrual Period: 12/18/2014 Other Clinical Conditions: HPV TYPING REQUESTED: IF ASCUS CHLAMYDIA TRACHOMATIS TEST ORDERED Eli Monaco C.N.P. LAB PAP COPATH ORD [facility] Organization Address City/State/ZIP Co de Phone Number [facility] LAB from Last 3 Months or Most Recently Relevant to Health Maintenance Care Teams Manager Leadership Development Relationship Specialty Start Date End Date Elsewhere, Pcp PCP - General Internal Medicine 01/04/23
--- OUTSIDE RECORDS SUMMARY | 2024-04-29 14:05 | XMS_ITS ---
Author Organization [facility] Address [address] [place] [address] Care Team Providers Care Bunch Maker Hand Name Role Phone Unavailable Unavailable Unavailable Surgery Details Not on file Complications Check Surgery Details section. Procedure Estimated Blood Loss Check Surgery Details section. Procedure Findings Check Surgery Details section. Procedure Specimens Taken Check Surgery Details section.
== END 2024-04-03 11:04 | disposition home or self-care (01) ==
LOC: NFLDREF 04-29 14:04
PROVIDERS: Visit Provider Advanced Practice Midwife
DX: Z12.4 Encounter for screening for malignant neoplasm of cervix (principal); N81.89 Other female genital prolapse
CPT/HCPCS: 87624

== ENCOUNTER 2025-07-21 10:57 | Outpatient (CLI) | payer OTHER, SELFPAY ==
--- NOTE | 2025-07-21 11:15 | CRLHL7_ITS ---
For Patients: As a result of the Cures Act, medical imaging exams and procedure reports are released immediately into your electronic medical record. You may view this report before your referring provider. If you have questions, please contact your health care provider. INDICATION: Dating and viability. COMPARISON: None TECHNIQUE: First trimester obstetric ultrasound, transvaginal approach, utilizing grayscale and color Doppler. FINDINGS: Sonographic imaging demonstrates an intrauterine with crown-rump length measuring 1.0 centimeters consistent with a 7 week and 0 day gestation. There are no heart tones. Normal-appearing yolk sac. Small subchorionic hemorrhage measuring 1.8 x 0.5 x 0.5 centimeters. Corpus luteal cyst in the right ovary measuring 2.1 x 1.0 x 2.1 centimeters. Otherwise, the right ovary is unremarkable. The left ovary is not visualized. No suspicious adnexal lesions. No free fluid. IMPRESSION: 1. Intrauterine with estimated gestational age of 7 weeks and 0 days with no heart tones. Findings are diagnostic of early loss. 2. Small subchorionic hemorrhage measuring 1.8 centimeters in greatest dimension. 3. Corpus luteal cyst in the right ovary measuring 2.1 centimeters in greatest dimension. Dictated by Flaco Sanford MD @ 07/21/2025 12:11:24 PM (Electronically Signed)
== END 2025-07-21 10:58 | disposition home or self-care (01) ==
LOC: US 10:58
PROVIDERS: Visit Provider Advanced Practice Midwife
DX: O03.9 Complete or unspecified spontaneous abortion without complication (principal); N83.11 Corpus luteum cyst of right ovary
CPT/HCPCS: 76817